=== PATIENT | male | born 1960 | race Hispanic/Latino ===

== ENCOUNTER 2020-05-17 12:41 | Emergency (ER) | payer OTHER, SELFPAY ==
--- NOTE | ~2020-05-17 | XR_ITS ---
EXAMINATION: XR chest 2V DATE: 05/17/2020 14:16 INDICATION: Heart palpitations TECHNIQUE: PA and lateral views of the chest were obtained. COMPARISON: None FINDINGS: Elevation of the left hemidiaphragm. No airspace opacities, pulmonary edema, pleural effusion or pneu mothorax. The cardiomediastinal silhouette is normal. Visualized bones and soft tissues are unremarka ble. IMPRESSION: 1. Elevated left hemidiaphragm. Otherwise no acute cardiopulmonary disease. Reviewed, dictated and finalized at location A.
[2020-05-17 13:03] VITALS: BP 159/96; PULSE 101; RESP 18; TEMP 36.7; O2SAT 99
--- NOTE | 2020-05-17 13:06 | ECG_ITS ---
Measurements Intervals [place] Rate: 90 P: 17 AL: 155 QRS: 31 QRSD: 139 T: -3 QT: 375 QTc: 459 Interpretive Statements SINUS RHYTHM RIGHT BUNDLE BRANCH BLOCK ABNORMAL ECG Electronically Signed On 05-17-2020 14:56:06 CDT by David Naidu D.O.
[2020-05-17 14:47] LABS: Basophils Absolute Auto 0.1 K/mm3 (0.0-0.1); Basophils Percent Auto 0.6 % (0.2-1.2); Eosinophils Absolute Auto 0.1 K/mm3 (0-0.3); Eosinophils Percent Auto 1.1 % (0-4.4); Hematocrit 44.3 % (42.0-52.0); Hemoglobin 15.8 g/dL (14.0-18.0); Immature Granulocyte Absolute 0.04 K/mm3 (0.00-0.031); Immature Granulocyte Percent A 0.4 % (0-0.5); Lymphocytes Absolute Auto 1.45 K/mm3 (0.9-3.2); Lymphocytes Percent Auto 14.4 % (18.3-44.2); Mean Corpuscular HGB Conc 35.7 g/dl (32-36); Mean Corpuscular Hemoglobin 31.8 pg (26-34); Mean Corpuscular Volume 89.1 fl (80-100); Monocytes Absolute Auto 0.9 K/mm3 (0.1-0.6); Monocytes Percent Auto 8.8 % (2.6-8.5); Neutrophils Absolute Auto 7.5 K/mm3 (1.3-6.7); Neutrophils Percent Auto 74.7 % (45.5-73.1); Platelet Count Result 238 k/mm3 (150-375); Red Blood Count 4.97 M/mm3 (4.6-6.20); Red Cell Distribution Width 12.9 % (11.5-14.5); White Blood Count 10.1 K/mm3 (4.5-10.0)
[2020-05-17 14:48] LABS: Prothrombin Time 13.2 Seconds (11.1-14.7)
[2020-05-17 14:49] LABS: Anion Gap 8 mmol/L (8-16); Blood Urea Nitrogen 20 mg/dL (9-20); Calcium 9.7 mg/dL (8.4-10.2); Carbon Dioxide 27 mmol/L (22-30); Chloride 102 mmol/L (98-107); Estimated CRCL calculation 57 ml/min; Estimated Glomerular Filt Rate > 60; Glucose 109 mg/dL (75-110); Sodium 137 mmol/L (137-145)
[2020-05-17 15:01] LABS: Troponin I < 0.012 ng/mL (0.000-0.034)
[2020-05-17 16:45] VITALS: PULSE 66; RESP 16; O2SAT 100
--- NOTE | 2020-05-17 17:01 | ED.ARRPALP ---
HPI - Arrhythmia/Palpitations General Chief Complaint: Arrhythmia/Palpitations Stated Complaint: fast heart rate, resolved Time Seen by Provider: 05/17/20 16:18 Source: patient and family Mode of arrival: ambulatory Limitations: no limitations History of Present Illness HPI narrative: 59-year-old with a history of hypertension, hyperlipidemia here with complaints of palpitations on and off since this morning. Patient states that he went for 5 mile walk came back home and started working in his basement started to feel his heart was racing. He stated he checked his pulse on his apple watch which showed 140. He denies any chest pain or shortness of breath. He presently states that he is feeling fine. Patient denies drinking caffeinated privileges. 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 complaint: rapid heart beat Onset (ago): hour(s) (4) Duration: intermittent and now resolved Severity: moderate Context: occurred during exertion Associated symptoms: denies other symptoms Related Data Home Medications Medication Instructions Recorded Confirmed atorvastatin 05/17/20 cetirizine mg 05/17/20 fluticasone propionate INTRANASAL 05/17/20 lisinopril 05/17/20 sildenafil 05/17/20 Allergies Allergy/AdvReac Type Severity Reaction Status Date / Time No Known Allergies Allergy Unverified 02/13/16 09:01 Review of Systems Review of Systems: All systems reviewed & are unremarkable except as noted in HPI and below Constitutional: Constitutional: Reports as per HPI Eyes: Eyes: Reports as per HPI ENT: Reports system reviewed and no additional complaints, except as documented Cardiovascular: Cardiovascular: Reports no additional cardiovascular complaints Respiratory: Respiratory: Reports no additional respiratory complaints Gastrointestinal: Gastrointestinal: Reports as per HPI Musculoskeletal: Musculoskeletal: Reports no additional musculoskeletal complaints Neurologic: Reports system reviewed and no additional complaints, except as documented PMFSH Social History Social History Gender identity (if verbalized by the patient): Male Exam Narrative: Exam Narrative: GENERAL: Well-appearing, well-nourished, and in no acute distress. HEAD: Normocephalic, atraumatic. EYES: PERRLA and EOMI. ENT: Nares clear, no rhinorrhea or epistaxis. Mucous membranes moist. NECK: Supple. CHEST: Clear to auscultation. No respiratory distress. HEART: Regular rate and rhythm. No murmur heard. Normal peripheral pulses. ABDOMEN: Soft, nontender, nondistended, normal active bowel sounds. EXTREMITIES: Normal range of motion. No edema. SKIN: Warm, dry, no rash. NEURO: No focal deficits. Alert and oriented x3. PSYCH: Normal mood and affect. Course Vital Signs Vital signs: Vital Signs Temperature 36.7 C 05/17/20 13:03 Pulse Rate 101 H 05/17/20 13:03 Respiratory Rate 18 05/17/20 13:03 Blood Pressure 159/96 H 05/17/20 13:03 Pulse Oximetry 99 05/17/20 13:03 Temperature 36.7 C 05/17/20 13:03 Pulse Rate 101 H 05/17/20 13:03 Respiratory Rate 18 05/17/20 13:03 Blood Pressure 159/96 H 05/17/20 13:03 Pulse Oximetry 99 05/17/20 13:03 MDM - Arrhythmia/Palpitations MDM Narrative Medical decision making narrative: With a given history of fast heartbeat will do EKG CBC chemistry and troponin. His EKG which was done here in the ER showed right bundle branch no evidence of A. fib or SVT or PVCs. Lab work is unremarkable. Had a long lengthy discussion with the patient about his lab work. Advised him to see his associate designer or primary doctor at [facility] for possible Holter monitor. Also recommended him not to drink any caffeinated beverages till he sees his doctor. [place] Differential Diagnosis Differential diagnosis: Likely palpitations, sinus tachycardia, artial fibrillation, ventricular prematur
[2020-05-17 17:30] VITALS: BP 155/88; PULSE 67; RESP 16; O2SAT 97
== END 2020-05-17 17:30 | disposition home or self-care (01) ==
PROVIDERS: Emergency Provider Family Medicine
DX: R00.2 Palpitations (principal); I10 Essential (primary) hypertension; E78.5 Hyperlipidemia, unspecified; I45.10 Unspecified right bundle-branch block
CPT/HCPCS: 36415; 71046; 80048; 84484; 85025; 85610; 85730; 93005; 99284

== ENCOUNTER 2023-04-04 08:09 | Emergency (ER) | payer OTHER, SELFPAY ==
[2023-04-04] VITALS (7 sets, daily range): BP systolic 138–156; BP diastolic 69–81; PULSE 60–75; RESP 17–20; TEMP 36.7; O2SAT 94–98
--- NOTE | ~2023-04-04 | CT_ITS ---
EXAMINATION: CT brain wo con DATE: 04/04/2023 10:15 INDICATION: Dizziness for one week TECHNIQUE: Computed tomography (CT) of the head was performed without intravenous contrast. The mA wa s adjusted according to patient size. Iterative reconstruction technique was employed. Exam dose: 52 9.67 mGy-cm total exam DLP. COMPARISON: None FINDINGS: No intracranial mass lesion or hemorrhage or cerebrovascular accident, midline shift or mas s effect is evident. Normal ventricular size. No subdural or epidural hematoma. The orbital contents are unremarkable. The included paranasal sinuses and mastoid air cells appear normal. No fracture or bone destruction of the cranial vault. IMPRESSION: No significant abnormality Reviewed, dictated and finalized at Location A. Reviewed, dictated and finalized at location B. IMPRESSION: No significant abnormality
[2023-04-04] MEDS: MECLIZINE HCL 25 MG TABLET PO (08:54)
--- NOTE | 2023-04-04 09:59 | ED.DIZZY ---
HPI - Dizziness General Chief Complaint: Dizziness Stated Complaint: vertigo Time Seen by Provider: 04/04/23 09:02 Source: patient Mode of arrival: ambulatory Limitations: no limitations History of Present Illness HPI Narrative: Patient is a 62-year-old male who presents ED with report of dizziness. Patient reports having dizziness, described as though the room is spinning, intermittently for the last week and a half. He states he typically only notices the dizziness when he lays down to go to bed at night or in the morning, or when he turns his head left and right. This morning however, patient experiencing more severe episode of dizziness. He states he was hardly able to walk due to the dizziness. He states his equilibrium felt very off balance. Patient reports a history of vertigo with several similar episodes occurring in the past. He has previously been prescribed meclizine. Patient also reports having left ear fullness and occasional tinnitus, denies headache, vision changes, nausea, vomiting, chest pain, difficulty breathing, numbness, focal weakness. Related Data Home Medications Medication Instructions Recorded Confirmed atorvastatin 20 mg tablet 05/17/20 cetirizine 10 mg tablet mg 05/17/20 fluticasone propionate 50 intranasal 05/17/20 mcg/actuation nasal spray,suspension lisinopril 20 mg tablet 05/17/20 sildenafil 100 mg tablet 05/17/20 Allergies Allergy/AdvReac Type Severity Reaction Status Date / Time No Known Allergies Allergy Verified 04/04/23 08:29 Review of Systems Review of Systems: CONSTITUTIONAL: Denies fever, chills, or sweats. EYES: Denies visual changes. ENT: See HPI. CARDIOVASCULAR: Denies chest pain, palpitations, or edema. RESPIRATORY: Denies cough or dyspnea. GASTROINTESTINAL: Denies abdominal pain, nausea, vomiting, or diarrhea. NEUROLOGIC: See HPI. All systems reviewed & are unremarkable except as noted in HPI and below PMFSH Past Medical History Medical History (Updated 04/04/23 @ 12:34 by Amina Padron PA-C) HTN (hypertension) Vertigo Social History Social History Gender identity (if verbalized by the patient): Male Exam Narrative: GENERAL: Well appearing, well-nourished, non-toxic, in no acute distress. HEAD: Normocephalic, atraumatic. EYES: PERRL/EOMI, conjunctivae clear bilaterally. Very mild fatiguable nystagmus when looking to the left. EARS: TMs clear, with good light reflex. No erythema or bulging. No cerumen impaction. No serous OM. THROAT: Pharynx clear, no exudate. MMs moist. NECK: Supple. No adenopathy, no masses. No meningeal signs. RESPIRATORY: Airway patent, respirations nonlabored. Clear to auscultation bilaterally, no rales, rhonchi, wheezing. CARDIOVASCULAR: Regular rate and rhythm without murmurs, rubs, or gallops. Peripheral pulses 2+ and equal bilaterally. MUSCULOSKELETAL: Moves all extremities. Strength/ROM intact without gross deformities. SKIN: Warm, dry, normal color. No rashes. NEURO: A&O X3. Speech clear. Follows commands. CN II-XII intact. Sensation grossly intact. No ataxic movements. Strength 5/5 in upper and lower extremities bilaterally. Gfys-[id number] and hjgpau-[id number] testing intact bilaterally. No pronator drift. Equal valve repairer reclamation strength bilaterally. PSYCHIATRIC: Appropriate mood and affect. Normal interaction. Course Vital Signs Vital signs: Vital Signs Temperature 98.1 F 04/04/23 08:21 Pulse Rate 65 04/04/23 08:21 Respiratory Rate 20 04/04/23 08:21 Blood Pressure 156/77 H 04/04/23 08:21 Pulse Oximetry 97 04/04/23 08:21 Oxygen Delivery Room Air 04/04/23 08:21 Temperature 98.1 F 04/04/23 08:21 Pulse Rate 61 04/04/23 12:45 Respiratory Rate 20 04/04/23 12:45 Blood Pressure 141/72 H 04/04/23 12:45 Pulse Oximetry 98 04/04/23 12:45 Oxygen Delivery Room Air 04/04/23 08:21 MDM - Dizziness MDM Narrative Medical decision making narrative: Patient presented to ED w
[2023-04-04 10:34] LABS: Basophils Absolute Auto 0.1 K/mm3 (0.0-0.1); Basophils Percent Auto 0.6 % (0.2-1.2); Eosinophils Absolute Auto 0.1 K/mm3 (0-0.3); Eosinophils Percent Auto 1.7 % (0-4.4); Hematocrit 45.1 % (42.0-52.0); Hemoglobin 15.5 g/dL (14.0-18.0); Immature Granulocyte Absolute 0.03 K/mm3 (0.00-0.031); Immature Granulocyte Percent A 0.4 % (0-0.5); Lymphocytes Absolute Auto 1.77 K/mm3 (0.9-3.2); Lymphocytes Percent Auto 21.2 % (18.3-44.2); Mean Corpuscular HGB Conc 34.4 g/dl (32-36); Mean Corpuscular Hemoglobin 31.1 pg (26-34); Mean Corpuscular Volume 90.4 fl (80-100); Mean Platelet Volume 9.9 fl (7.4-10.4); Monocytes Absolute Auto 0.6 K/mm3 (0.1-0.6); Monocytes Percent Auto 7.7 % (2.6-8.5); Neutrophils Absolute Auto 5.7 K/mm3 (1.3-6.7); Neutrophils Percent Auto 68.4 % (45.5-73.1); Platelet Count Result 217 k/mm3 (150-375); Red Blood Count 4.99 M/mm3 (4.6-6.20); Red Cell Distribution Width 13.6 % (11.5-14.5); White Blood Count 8.4 K/mm3 (4.5-10.0)
[2023-04-04] MEDS: diazePAM INJ (*CRX) 10 MG/2 ML SYRINGE IV PUSH (10:37)
[2023-04-04] MEDS: SODIUM CHLORIDE 0.9% IV 1,000 ML 999 ML IV CONT (10:37)
[2023-04-04 10:40] LABS: Alanine Aminotransferase 45 U/L (6-50); Albumin Level 4.8 g/dL (3.5-5.1); Alkaline Phosphatase 58 U/L (38-126); Anion Gap 7 mmol/L (8-16); Aspartate Amino Transferase 42 U/L (17-59); Bilirubin,Total 0.9 mg/dL (0.2-1.3); Blood Urea Nitrogen 20 mg/dL (9-20); Calcium 9.8 mg/dL (8.4-10.2); Carbon Dioxide 29 mmol/L (22-30); Chloride 103 mmol/L (98-107); Estimated CRCL calculation 64 ml/min; Estimated Glomerular Filt Rate > 60; Glucose 114 mg/dL (65-110); Potassium 3.8 mmol/L (3.4-5.0); Sodium 139 mmol/L (137-145)
== END 2023-04-04 12:49 | disposition home or self-care (01) ==
PROVIDERS: Emergency Provider Physician Assistant
DX: H81.10 Benign paroxysmal vertigo, unspecified ear (principal); I10 Essential (primary) hypertension
CPT/HCPCS: 36415; 70450; 80053; 85025; 96361; 96374; 99284; A9270; J3360; J7030

== ENCOUNTER 2024-03-20 00:46 | Day surgery (SDC) | payer OTHER, SELFPAY ==
[2024-03-14 09:42] VITALS: BMI 28.5
--- NOTE | 2024-03-14 09:43 | PC.NURSE ---
Report to the Outpatient Waiting Room, entrance under the green pavilion located off [facility], at time _0600_ on date _[id number]_. Planned Procedure Time: _0730_. Time changes happen often and if your time is changed the preop area will call you the afternoon before. - You and your visitor will be asked to self-screen and do not enter if you have any COVID symptoms. - A mask is optional within the hospital at this time. Patients may have clear liquids (water, carbonated beverages, clear teas, apple juice) until 3 hours prior to surgery with a maximum of 20 ounces. - No food from midnight until time of surgery Take the following medications with a SIP of water the morning of surgery: ___Flonase DO NOT STOP ANY OF YOUR OTHER PRESCRIPTION MEDICATIONS PRIOR TO SURGERY ?EXCEPT THE FOLLOWING Medications to discontinue per physician None Date to take last dose Please no make-up, nail english, hairspray, perfume, deodorant, or body powder the day of surgery. No jewelry (including any body piercings) or valuables the day of surgery, leave them at home. Please take a shower or bath the night before, or the morning of, surgery with an antibacterial soap. Wear comfortable, loose fitting clothing. - Jewelry must be removed prior to entering the operating room. Rings and piercings that are not removed may be cut off. - The hospital will not accept responsibility for valuables. - Please leave all valuables, including medications, at home the day of surgery. If you are going home after surgery, a licensed garbage truck driver must drive you home. - NO public transportation without another adult if you receive anesthesia. - We recommend that an adult stay with you for 24 hours following discharge. - We also recommend that you do not drive, make important decision, drink alcoholic beverages, or take any drugs that were not prescribed by your health care provider for at least 24 hours after your discharge time. Follow any additional instructions given to you from your surgeon. If you or anyone in your household have experienced Covid symptoms in the past week, please notify your surgeon or the nurse liaison at the phone number below for possible testing. Telephone instructions given to _Pierre_and asked if any additional questions and then verbalized understanding. Patient advised to call surgeon office or pre surgery nurse liaison [phone] if any additional questions.
[2024-03-20 06:20] VITALS: BP 147/78; PULSE 66; RESP 16; TEMP 37.2; O2SAT 97
[2024-03-20 06:34] LABS: Appearance Urine Clear (Clear); Bilirubin Urine Negative (Negative); Blood Urine Negative (Negative); Color Urine Yellow (Yellow); Glucose Urine UA Negative (Negative); Ketones Urine Negative (Negative); Leukocyte Esterase Ur Negative LEU/UL (Negative); Nitrate Urine Negative (Negative); Protein Urine Negative (Negative); Specific Grav Ur 1.013 (1.001-1.035); Urobilinogen Urine 0.2 mg/dL (<2.0); pH Urine 5.5 (5.0-9.0)
[2024-03-20 07:02] LABS: Add Urine Microscopic? NO
[2024-03-20] MEDS: LACTATED RINGERS 1,000 ML 30 ML IV CONT (07:02)
--- NOTE | 2024-03-20 07:13 | P.PNAN_ITS ---
Anes - Initial Pre Proc Eval Procedure: Operation Date: 03/20/24 07:30 Proposed Procedures p Trans Rectal Ultrasound Fusion Guided Prostate Biopsy - Florencio Apodaca MD Date/Time: 03/20/24 07:13 Surgeon: Florencio Apodaca MD Pre Op Diagnosis: Elev PSA Patient Data Age: 63 Gender: M Height: 1.6 m Weight: 78.4 kg Last Vital Signs Temp 99.0 F 03/20/24 06:20 Pulse 66 03/20/24 06:20 Resp 16 03/20/24 06:20 BP 147/78 H 03/20/24 06:20 Pulse Ox 97 03/20/24 06:20 Allergies Allergy/AdvReac Type Severity Reaction Status Date / Time No Known Allergies Allergy Verified 03/20/24 06:55 Home Medications Medication Instructions Recorded Confirmed Type atorvastatin 20 mg tablet 20 mg PO DAILY 05/17/20 03/20/24 History cetirizine 10 mg tablet 10 mg PO DAILY 05/17/20 03/20/24 History fluticasone propionate 50 1 spray intranasal DAILY 05/17/20 03/20/24 History mcg/actuation nasal spray,suspension lisinopril 20 mg tablet 20 mg PO BID 05/17/20 03/20/24 History sildenafil 100 mg tablet 100 mg PO DAILY PRN Sexual Activity 05/17/20 03/20/24 History meclizine 25 mg tablet 25 mg PO TID PRN dizziness #20 tabs 04/04/23 03/20/24 Rx Laboratory Tests 03/20/24 06:20 Urine Color Yellow (Yellow) Urine Appearance Clear (Clear) Urine pH 5.5 (5.0-9.0) Ur Specific [place] 1.013 (1.001-1.035) Urine Protein Negative mg/dL (Negative) Urine Glucose (UA) Negative mg/dL (Negative) Urine Ketones Negative mg/dL (Negative) Ur Blood (Man) Negative (Negative) Urine Nitrate Negative (Negative) Urine Bilirubin Negative (Negative) Urine Urobilinogen 0.2 mg/dL (<2.0) Leukocyte Esterase Rfl Negative CHER/UL (Negative) Patient hx anesthesia problems: none Family hx anesthesia problems: none Results Review: All pre-operative results and documents have been reviewed as part of the pre- operative evaluation. [facility] Past Medical History Medical History (Updated 04/05/23 @ 00:02 by Natan Kim) HTN (hypertension) Vertigo Social History Social History Smoking status: Never smoker Alcohol intake: current Drinks per week: 4 Living arrangements: with family Gender identity (if verbalized by the patient): Male Spiritual care concerns: No Anes - Eval Final PreProcedure Day of Procedure 03/20/24 07:13 Patient weight: obese Heart: regular rate and rhythm Lungs: clear to auscultation Airway: Mallampati scale class II Neurological: alert and oriented Last oral intake: >/= 8 hours ASA classification: III Emergent: no Anesthetic plan: proceed Anesthesia type and monitoring: general GIVS and standard monitoring Results Review: All pre-operative results and documents have been reviewed as part of the pre- operative evaluation. Informed Consent: The patient's anesthetic plan and its attendant risks and benefits were discussed with the patient/family/POA. Questions were solicited and answers provided to the satisfaction of the patient/family/POA.
--- NOTE | 2024-03-20 07:27 | WPDHPUPDATE1 ---
History and Physical Update Update Date/Time: 03/20/24 07:27 History and Physical has been reviewed, including an updated exam of the patient. There are NO changes in the patient's condition. Risks, benefits, and alternatives have been discussed and questions answered. Patient agrees to proceed with procedure.
--- NOTE | 2024-03-20 07:29 | PM.IMHP ---
H&P: HPI History of Present Illness Date/Time: 03/20/24 07:29 Chief Complaint: elevated psa Narrative: 63 year old male with elevated psa and abnormal MRI. Review of Systems Review of Systems: All systems reviewed & are unremarkable except as noted in HPI and below PMFSH Past Medical History Medical History HTN (hypertension) Vertigo Social History Social History Smoking status: Never smoker Alcohol intake: current Drinks per week: 4 Living arrangements: with family Gender identity (if verbalized by the patient): Male Spiritual care concerns: No Meds Home Medications and Allergies Home Medications Medication Instructions Recorded Confirmed Type atorvastatin 20 mg tablet 20 mg PO DAILY 05/17/20 03/20/24 History cetirizine 10 mg tablet 10 mg PO DAILY 05/17/20 03/20/24 History fluticasone propionate 50 1 spray intranasal DAILY 05/17/20 03/20/24 History mcg/actuation nasal spray,suspension lisinopril 20 mg tablet 20 mg PO BID 05/17/20 03/20/24 History sildenafil 100 mg tablet 100 mg PO DAILY PRN Sexual Activity 05/17/20 03/20/24 History meclizine 25 mg tablet 25 mg PO TID PRN dizziness #20 tabs 04/04/23 03/20/24 Rx Allergies Allergy/AdvReac Type Severity Reaction Status Date / Time No Known Allergies Allergy Verified 03/20/24 06:55 Vital Signs Vital Signs - 24 hr 03/20/24 06:20 Temperature 37.2 C Pulse Rate 66 Respiratory Rate 16 Blood Pressure 147/78 H Pulse Oximetry 97 Exam Const: General: cooperative, comfortable and no acute distress Resp: Effort & Inspection: normal respiratory effort Cardio: Rate: regular rate Rhythm: regular rhythm H&P: Results Labs Labs: Urine 03/20/24 Range/Units 06:20 Urine Color Yellow (Yellow) Urine Appearance Clear (Clear) Urine pH 5.5 (5.0-9.0) Ur Specific [place] 1.013 (1.001-1.035) Urine Protein Negative (Negative) mg/dL Urine Glucose (UA) Negative (Negative) mg/dL Assessment and Plan Assessment and plan (1) Elevated PSA: Code(s): R97.20 - Elevated prostate specific antigen [PSA] Status: Acute Assessment and Plan: Proceed with uronav us and prostate biopsy
--- NOTE | 2024-03-20 07:57 | W.PM.PROC2 ---
Procedure Note - Detailed Date of Procedure 03/20/24 Pre-op Diagnosis Elev PSA Post-op Diagnosis Same Procedure Performed Uronav us and prostate biopsy Surgeon Florencio Apodaca MD Anesthesia MAC Description of Procedure Patient is taken the operative suite correctly identified. He was placed in the lateral decubitus position and an anesthesia was obtained. Transrectal ultrasound was then performed. The MRI image was fused to the ultrasound machine. The region of interest was identified in 3 cores were taken from that location. A standard 12 core biopsy was then performed without any difficulty. Patient tolerated procedure well without any complications and was taken recovery stable condition. He will call for path results in 1 week. This completes dictation. Please send a copy of operative note to the office Estimated Blood Loss 0 Drains No Packing No Pathology Yes Complications No immediate complications Condition Stable Disposition PACU
[2024-03-20 07:59] VITALS: BP 116/55; PULSE 68; RESP 14; O2SAT 95
[2024-03-20 08:30] VITALS: BP 130/67; PULSE 54
== END 2024-03-20 08:52 | disposition home or self-care (01) ==
PROVIDERS: Visit Provider Urology
PROC: (CPT 55700; principal; 2024-03-20 07:30)
DX: R97.20 Elevated prostate specific antigen [PSA] (principal); I10 Essential (primary) hypertension
CPT/HCPCS: 55700; 81003; 88342; G0416; J2003; J2250; J2704; J3010; J7120

== ENCOUNTER 2024-04-23 23:49 | Inpatient (IN) | payer OTHER, SELFPAY ==
--- NOTE | ~2024-04-23 | XR_ITS ---
Clinical Indication: Shortness of breath AP and lateral views of the chest: Comparison: 05/17/2020 Findings: The lungs are clear, without evidence of focal consolidation or pleural effusion. Oh stable elevation left hemidiaphragm noted. Cardiomediastinal silhouette is within normal limits. Bones and soft tissues are unremarkable. Impression: Clear lungs. Stable elevation left hemidiaphragm. Reviewed, dictated and finalized at location M. Impression: Clear lungs. Stable elevation left hemidiaphragm.
--- NOTE | ~2024-04-23 | XR_ITS ---
Portable chest x-ray Comparison: 04/26/2024 Clinical History: Intubated Findings: Endotracheal tube and NG tube are in satisfactory positions. Small left pleural effusion w ith left basilar airspace disease present. Right lung clear. Cardiomediastinal silhouette is stable. Bones and soft tissues are unremarkable. Impression: Small left pleural effusion with left basilar atelectasis versus pneumonia. Correlate clinically. Support tubes, as above. Reviewed, dictated and finalized at location . Impression: Small left pleural effusion with left basilar atelectasis versus pneumonia. Cor relate clinically. Support tubes, as above.
--- NOTE | ~2024-04-23 | XR_ITS ---
XR chest ET placement 04/26/2024 13:23 Indication: Status post intubation. Respiratory distress. Procedure: AP portable chest Comparison: Comparison to multiple prior studies sequentially, with oldest reviewed study dated 05/17. Findings: Endotracheal tube tip 1.4 cm above the sapphire. Bilateral airspace disease. Elevated left di aphragm. No pneumothorax. No significant effusion. Impression: 1: Bilateral airspace disease may represent pneumonia or edema. 2: Endotracheal tube tip 1.4 cm above the sapphire. Recommend retraction. Reviewed, dictated and finalized at location B. Impression: 1: Bilateral airspace disease may represent pneumonia or edema. 2: Endotracheal tube tip 1.4 cm above the sapphire. Recommend retraction.
--- NOTE | ~2024-04-23 | CT_ITS ---
CT of the Abdomen and Pelvis: Indication: Abdominal pain, GI bleeding Technique: 2.5 mm axial scans were obtained through the abdomen and pelvis following intravenous adm inistration of 100 cc of Omnipaque 350. Dose reduction technique was used on this scan by utilizing a utomated exposure control and iterative reconstruction technique. The dose-length product (DLP) was 5 52.21 mGy-cm. Findings: Scans through the lung bases demonstrate mild bibasilar atelectatic change. The liver, spleen, pancreas, gallbladder, adrenals and kidneys are within normal limits. No evidence of aortic aneurysm. No lymphadenopathy. Probable mild wall thickening of the gastric antrum/duodenum with minimal adjacent stranding. No willy l obstruction. No abscess or free air evident. Images through the pelvis were performed. Urinary bladder unremarkable. Prostate gland is enlarged. T here is trace pelvic free fluid versus small lymphocele.. Impression: Wall thickening and mild adjacent inflammatory change at the duodenum/gastric antrum, suspicious for peptic ulcer disease. No evidence of perforation. Enlarged prostate gland. Reviewed, dictated and finalized at location M. Impression: Wall thickening and mild adjacent inflammatory change at the duodenum/gastric a ntrum, suspicious for peptic ulcer disease. No evidence of perforation. Enlarged prostate gland.
--- NOTE | ~2024-04-23 | XR_ITS ---
XR abdomen gastric tube insert INDICATION: Evaluate NG tube position. TECHNIQUE: Limited KUB perform for evaluating NG tube . COMPARISON: No prior studies for comparison. FINDINGS: NG tube tip in the stomach. Visualized bowel gas pattern is unremarkable.An endotracheal t ube tip approximately 2 cm above the sapphire. Shallow inspiration with crowding of the pulmonary vesse ls. IMPRESSION: 1: NG tube tip in the stomach. Reviewed, dictated and finalized at location B.
--- NOTE | ~2024-04-23 | XR_ITS ---
EXAMINATION: XR chest 1V portable DATE: 04/28/2024 09:28 INDICATION: Coarse breath sounds. Pulmonary edema. TECHNIQUE: A single frontal view of the chest was obtained. COMPARISON: Chest single view 04/27/2024, CT abdomen and pelvis 04/24/2024 FINDINGS: The lung volumes are small with relative elevation of left hemidiaphragm. There is a diffus e interstitial pattern in the lungs, consistent with mild pulmonary edema. There is mild atelectasis at left lung base. No pleural effusion or pneumothorax. The heart size is normal. IMPRESSION: 1. Mild pulmonary edema. 2. Persistent mild elevation of left hemidiaphragm with mild atelectasis at left lung base. Reviewed, dictated and finalized at location A. IMPRESSION: 1. Mild pulmonary edema. 2. Persistent mild elevation of left hemidiaphragm with mild atelectasis at lef t lung base.
[2024-04-23 23:49] VITALS: BP 115/60; PULSE 111; RESP 22; O2SAT 98
--- NOTE | 2024-04-23 23:55 | ECG_ITS ---
Test Date: 2024-04-23 23:56:14 Measurements Intervals [place] Rate: 112 P: -11 NC: 104 QRS: 54 QRSD: 122 T: -7 QT: 340 QTc: 465 Interpretive Statements SINUS TACHYCARDIA WITH SHORT NC INTERVAL RIGHT BUNDLE BRANCH BLOCK [120+ ms QRS DURATION, UPRIGHT V1, 40+ ms S IN I/aVL/V4/V5/V6] No previous ECG available for comparison Electronically Signed On 04-24-2024 14:42:13 CDT by Brian Dela Cruz M.D.
[2024-04-24] VITALS (29 sets, daily range): BP systolic 105–160; BP diastolic 39–66; PULSE 63–109; RESP 14–23; TEMP 36.3–38.2; O2SAT 93–100; BMI 31.1
[2024-04-24] MEDS: SODIUM CHLORIDE 0.9% IV 1,000 ML 999 ML IV CONT ×2 (00:10→03:43)
[2024-04-24 00:21] LABS: Basophils Percent Auto 0.1 % (0.2-1.2); Eosinophils Percent Auto 0.1 % (0-4.4); Hematocrit 23.5 % (42.0-52.0); Hemoglobin 8.1 g/dL (14.0-18.0); Immature Granulocyte Absolute 0.81 K/mm3 (0.00-0.031); Lymphocytes Absolute Auto 1.41 K/mm3 (0.9-3.2); Lymphocytes Percent Auto 10.5 % (18.3-44.2); Mean Corpuscular HGB Conc 34.5 g/dl (32-36); Mean Corpuscular Hemoglobin 31.4 pg (26-34); Mean Corpuscular Volume 91.1 fl (80-100); Mean Platelet Volume 10.2 fl (7.4-10.4); Monocytes Absolute Auto 1.3 K/mm3 (0.1-0.6); Neutrophils Absolute Auto 9.8 K/mm3 (1.3-6.7); Neutrophils Percent Auto 73.3 % (45.5-73.1); Platelet Count Result 203 k/mm3 (150-375); Red Blood Count 2.58 M/mm3 (4.6-6.20); Red Cell Distribution Width 13.1 % (11.5-14.5); White Blood Count 13.4 K/mm3 (4.5-10.0)
[2024-04-24 00:32] LABS: Creatine Kinase 52 U/L (55-170); Lactic Acid Reflex 2.6 mmol/L (0.7-2.0); Lipase 129 U/L (23-300); Magnesium 1.6 mg/dL (1.6-2.3)
[2024-04-24 00:52] LABS: Troponin I 0.036 ng/mL (0.000-0.034)
[2024-04-24 00:57] LABS: Alanine Aminotransferase 36 U/L (6-50); Albumin Level 2.6 g/dL (3.5-5.1); Alkaline Phosphatase 50 U/L (38-126); Anion Gap 10 mmol/L (4-12); Aspartate Amino Transferase 30 U/L (17-59); Bilirubin,Total 0.4 mg/dL (0.2-1.3); Blood Urea Nitrogen 34 mg/dL (9-20); Calcium 7.5 mg/dL (8.4-10.2); Carbon Dioxide 22 mmol/L (22-30); Chloride 97 mmol/L (98-107); Estimated CRCL calculation 48 ml/min; Estimated Glomerular Filt Rate 56; Glucose 178 mg/dL (65-110); Potassium 4.2 mmol/L (3.4-5.0); Sodium 129 mmol/L (137-145)
[2024-04-24 01:13] LABS: Procalcitonin 0.3 ng/mL
[2024-04-24 02:54] LABS: Add Urine Microscopic? NO; Appearance Urine Clear (Clear); Bilirubin Urine Negative (Negative); Blood Urine Negative (Negative); Color Urine Yellow (Yellow); Glucose Urine UA Negative (Negative); Ketones Urine Negative (Negative); Leukocyte Esterase Ur Negative LEU/UL (Negative); Nitrate Urine Negative (Negative); Protein Urine Negative (Negative); Specific Grav Ur > 1.045 (1.001-1.035); Urobilinogen Urine 0.2 mg/dL (<2.0); pH Urine 6.5 (5.0-9.0)
--- NOTE | 2024-04-24 03:17 | ECG_ITS ---
Test Date: 2024-04-24 03:23:58 Measurements Intervals [place] Rate: 92 P: 16 MO: 133 QRS: 21 QRSD: 124 T: 9 QT: 359 QTc: 446 Interpretive Statements SINUS RHYTHM RIGHT BUNDLE BRANCH BLOCK [120+ ms QRS DURATION, UPRIGHT V1, 40+ ms S IN I/aVL/V4/V5/V6] Compared to ECG 04/23/2024 23:56:14 NO SIGNIFICANT CHANGES Electronically Signed On 04-24-2024 14:45:15 CDT by Brian Dela Cruz M.D.
[2024-04-24 03:18] LABS: Reflex Lactic Acid Yes or No Add Lactic
--- NOTE | 2024-04-24 03:37 | ED.GENADULT ---
HPI - General Adult General Chief complaint: Weakness Stated complaint: LETHARGY, WEAKNESS, DIARRHEA, COVID+ Time Seen by Provider: 04/24/24 00:02 History of Present Illness HPI narrative: Patient is a 63-year-old gentleman who presents emergency department with chief complaint of diarrhea and weakness. The patient recently had COVID-19 full tested positive today started feeling weak he has been having diarrhea for several days and today noticed that when he went to the bathroom his stool was extremely black. Patient reports no prior history of GI bleeds reports that he has abdominal discomfort. Related Data Home Medications Medication Instructions Recorded Confirmed atorvastatin 20 mg tablet 20 mg PO DAILY 05/17/20 03/20/24 cetirizine 10 mg tablet 10 mg PO DAILY 05/17/20 03/20/24 fluticasone propionate 50 1 spray intranasal DAILY 05/17/20 03/20/24 mcg/actuation nasal spray,suspension lisinopril 20 mg tablet 20 mg PO BID 05/17/20 03/20/24 sildenafil 100 mg tablet 100 mg PO DAILY PRN Sexual Activity 05/17/20 03/20/24 Allergies Allergy/AdvReac Type Severity Reaction Status Date / Time No Known Allergies Allergy Verified 03/20/24 06:55 Review of Systems Review of Systems: A 10 system review of systems was completed on the patient and is negative except for what is stated in the HPI. Nursing and ancillary documentation was reviewed. [facility] Past Medical History Medical History HTN (hypertension) Vertigo Social History Social History Smoking status: Never smoker Alcohol intake: current Drinks per week: 4 Living arrangements: with family Gender identity (if verbalized by the patient): Male Spiritual care concerns: No Exam Narrative: GENERAL: Well-appearing, well-nourished, and in no acute distress. HEAD: Normocephalic, atraumatic. EYES: PERRLA and EOMI. ENT: Nares clear, no rhinorrhea or epistaxis. Mucous membranes moist. NECK: Supple. CHEST: Clear to auscultation. No respiratory distress. HEART: Regular rate and rhythm. No murmur heard. Normal peripheral pulses. ABDOMEN: Soft, mild diffuse tenderness, nondistended, normal active bowel sounds. : Black guaiac-positive stool EXTREMITIES: Normal range of motion. No edema. SKIN: Warm, dry, no rash. NEURO: No focal deficits. Alert and oriented x3. PSYCH: Normal mood and affect. Course Vital Signs Vital signs: Vital Signs Pulse Rate 111 H 04/23/24 23:49 Respiratory Rate 22 H 04/23/24 23:49 Blood Pressure 115/60 04/23/24 23:49 Pulse Oximetry 98 04/23/24 23:49 Oxygen Delivery Room Air 04/23/24 23:49 Pulse Rate 93 04/24/24 03:23 Respiratory Rate 18 04/24/24 03:23 Blood Pressure 111/57 L 04/24/24 03:23 Pulse Oximetry 96 04/24/24 03:23 Oxygen Delivery Room Air 04/23/24 23:49 Medical Decision Making MDM Narrative Medical decision making narrative: Differential diagnosis includes dehydration, electrolyte abnormality, GI bleed, Patient's hemoglobin was 8.1 this is significantly decreased from the patient's previous hemoglobins. Electrolytes showed a BUN of 34 lactic acid was slightly elevated magnesium was 0.036. Urinalysis showed a specific gravity of greater than 1.045 CT scan of the abdomen pelvis showed evidence of a possible ulcer patient was given Protonix in the emergency department started on a Protonix drip patient admitted to the hospital service for serial H&Hs and further care. Vital Signs Vital Signs: Vital Signs Pulse Rate 111 H 04/23/24 23:49 Respiratory Rate 22 H 04/23/24 23:49 Blood Pressure 115/60 04/23/24 23:49 Pulse Oximetry 98 04/23/24 23:49 Oxygen Delivery Room Air 04/23/24 23:49 Pulse Rate 93 04/24/24 03:23 Respiratory Rate 18 04/24/24 03:23 Blood Pressure 111/57 L 04/24/24 03:23 Pulse Oximetry 96 04/24/24
[2024-04-24 03:38] LABS: Lactic Acid 1.3 mmol/L (0.7-2.0)
[2024-04-24] MEDS: MORPHINE SULFATE (*CRX) 4 MG/ML INJ IV PUSH ×2 (03:39→21:18)
[2024-04-24] MEDS: PANTOPRAZOLE SODIUM IV 40 MG VIAL IV PUSH ×2 (03:41→21:18)
[2024-04-24 03:49] LABS: Troponin I 0.186 ng/mL (0.000-0.034)
[2024-04-24 03:59] LABS: Influenza A QL RT-PCR Negative (Negative); Influenza B QL RT-PCR Negative (Negative); RSV RNA, RT-PCR Negative (Negative); SARS-CoV-2 RNA PCR Positive (Negative)
[2024-04-24] MEDS: PANTOPRAZOLE SODIUM IV 80 MG in SODIUM CHLORIDE 0.9% IV 500 ML 50 MG IV CONT (04:18)
--- NOTE | 2024-04-24 04:40 | PC.NURSE ---
This patient, Pierre Dorantes, was admitted to IMU Room 200-01. Patient/family oriented to hospital policies and general routines including ID bracelet, bed and alarms, visiting hours, pain management, procedures, bathroom and other care routines, personal items, smoking policy, room service/diet, and visiting hours. Information on how to activate the Rapid Response Team has been discussed. Patient/Family are encouraged to report perceived risks to care and to ask questions if they do not understand what they are told or what they should do.
--- NOTE | 2024-04-24 05:32 | PM.IMHP ---
H&P: HPI History of Present Illness Date/Time: 04/24/24 05:32 Chief Complaint: Melena Narrative: Patient is a 63-year-old male past with history of hyperlipidemia, essential hypertension, erectile dysfunction, recently diagnosed COVID-19 presents to ED with complaints of dark diarrhea and weakness. Patient was diagnosed COVID-19 1 week ago with only symptoms of cough. He got COVID-19 from his and grandchild. He feels his cough is improving. Over last several days he started having increased diarrhea with melena. He has developed some generalized weakness. He states he has had H pylori in the past last in 2007. He has been using Tylenol and Motrin up to 400 mg daily to deal with the myalgias from COVID. Patient has had EGD and colonoscopy in the past, not recently. In the ED: He has hemoglobin of 8, last hemoglobin was 15 in March [address]23. Ab[address] CT scan is concerning for ulcer likely in the duodenum with inflammatory changes. Patient was given 2 L fluid bolus, started on Protonix drip for suspected GI bleed. He elevated troponin 0.186 with no chest pain. Patient being admitted for EGD and GI consult for GI bleed. Review of Systems Review of Systems: Constitutional: No Fever, No Chills, No Night Sweats, No Fatigue, No Malaise ENT/Mouth: No Hearing Changes, No Ear Pain, No Nasal Congestion, No Sinus Pain, No Hoarseness, No sore throat, No Rhinorrhea, No Swallowing Difficulty Eyes: No Eye Pain, No Redness, No Vision Changes Cardiovascular: No Chest Pain, No Palpitations, No Dyspnea on Exertion, No Orthopnea, No Claudication, No Edema Respiratory: Endorses nonproductive cough., No Wheezing, No Shortness of Breath Gastrointestinal: Endorses melena, abdominal pain Genitourinary: No Dysuria, No Urinary Frequency, No Hematuria, No Urinary Incontinence, No Urgency Musculoskeletal: No Arthralgias, No Myalgias, No Joint Swelling, No Joint Stiffness, No Back Pain Skin: No Skin Lesions, No Pruritis, No Hair Changes Neuro: No Weakness, No Numbness, No Paresthesias, No Loss of Consciousness, No Syncope, No Dizziness, No Headache Psych: No Anxiety/Panic, No Depression, No Insomnia Heme: No Bruising, No Bleeding Lymph: No Adenopathy Endocrine: No Polyuria, No Polydipsia, No Temperature Intolerance [facility] Past Medical History Medical History (Updated 04/24/24 @ 05:36 by Conor Arias DO) Erectile dysfunction HLD (hyperlipidemia) HTN (hypertension) Vertigo Family History Family History (Updated 04/24/24 @ 05:05 by Ela Tsang RN) Father Congestive heart failure Diabetes mellitus Mother Colon cancer Atelectasis of both lungs Social History Social History Smoking status: Never smoker Alcohol intake: current Drinks per week: 4 Substance use: never Do You Feel Safe in your Home?: Yes Lack of Transportation: No Lack of Food: Never True Current Housing: I Have Housing Concerned About Future Housing: No Difficulty Paying Gas/Electric Bills: No Difficulty Paying for Meds: No Currently Unemployed: No Education: Associate Degree Difficulty w/ Childcare or Family Care: No Living arrangements: with family Gender identity (if verbalized by the patient): Male Spiritual care concerns: No Meds Home Medications and Allergies Home Medications Medication Instructions Recorded Confirmed Type atorvastatin 20 mg tablet 20 mg PO DAILY 05/17/20 04/24/24 History cetirizine 10 mg tablet 10 mg PO DAILY 05/17/20 04/24/24 History fluticasone propionate 50 1 spray intranasal DAILY 05/17/20 04/24/24 History mcg/actuation nasal spray,suspension lisinopril 20 mg tablet 20 mg PO BID 05/17/20 04/24/24 History sildenafil 100 mg tablet 100 mg PO DAILY PRN Sexual Activity 05/17/20 04/24/24 History meclizine 25 mg tablet 25 mg PO TID PRN dizziness #20 tabs 04/04/23 04/24/24 Rx Allergies Allergy/AdvReac Type Severit
[2024-04-24] MEDS: SODIUM CHLORIDE 0.9% IV 1,000 ML 125 ML IV CONT (05:44)
[2024-04-24 06:30] LABS: Hematocrit 21.4 % (42.0-52.0); Hemoglobin 7.2 g/dL (14.0-18.0)
[2024-04-24 06:59] LABS: Troponin I 0.172 ng/mL (0.000-0.034)
--- NOTE | 2024-04-24 08:55 | P.CONGI_ITS ---
I, Duke Chao MD, have provided a substantive portion of the care of this patient and discussed the patient with my Nurse Practitioner. I have reviewed any new relevant radiographic and laboratory results including medications. I agree with her documentation as noted below.?I personally performed the medical decision making and much of the history and exam for this encounter. briefly, he was diagnosed with COVID about 1 week ago, here with malaise and progressive generalized weakness, also noted dark stools. Few days ago took ibuprofen, he never had EGD but years ago was treated for H pylori. His last colonoscopy with polyp in 2019. Here with acute blood loss anemia, he is getting blood transfusion now, started on iv protonix (he is not taking at home). CT scan showed possible ulcer in duodenum. Plan is EGD tomorrow after more stable. Assessment and Plan Assessment and plan (1) Acute GI bleeding: Code(s): K92.2 - Gastrointestinal hemorrhage, unspecified Status: Acute (2) Melena: Code(s): K92.1 - Melena Status: Acute (3) Right sided abdominal pain: Code(s): R10.9 - Unspecified abdominal pain Status: Acute (4) Nausea: Code(s): R11.0 - Nausea Status: Acute (5) Family history of colon cancer: Code(s): Z80.0 - Family history of malignant neoplasm of digestive organs Status: Acute (6) Acute blood loss anemia: Code(s): D62 - Acute posthemorrhagic anemia Status: Acute (7) COVID: Code(s): U07.1 - COVID-19 Status: Acute (8) Hyponatremia: Code(s): E87.1 - Hypo-osmolality and hyponatremia Status: Acute Plan 1. Melena/nausea/right sided abdominal pain/abnormal imaging digestive: Patient has never had an EGD. CT showed wall thickening and mild adjacent inflammatory changes at the duodenum / gastric antrum suspicious for peptic ulcer disease but no evidence of perforation. Patient presented with dark stools that started on 04/24/2024. Stools were small, smushy, and foul smelling. Patient had maroon colored stools in the ER on 04/24/2024. prior to admission he was having severe right-sided abdominal pain that radiated into his flank and back this pain has improved but not resolved since admission patient was having diarrhea x1 day prior to admission. Most recent H&H showed Hgb 6.5 and Hct 20. DDX: Peptic ulcer disease VS Upper GI bleed VS Gastritis/Duodenitis VS Ischemic colitis VS Inflammatory bowel disease VS neoplasm * Continue Protonix gtt * Care with NSAIDs, aspirin, and anticoagulants * okay for clear liquid diet today * plan for EGD tomorrow once he is more stable ( with transfusion and electrolyte correction) unless patient starts having signs of active bleeding 2. Acute blood loss anemia: Patient with H&H trending down since admission showing HGB 8-->7.2-->6.5. No signs of active GI bleeding at this time to include hematemesis, hematochezia, or melena. Patient denies any chronic NSAID o r aspirin use but had been using Motrin a few days prior to admission. * Likely related to problem 1 * Primary care team to continue monitoring H&H and transfuse as needed to keep hemoglobin > 7 3. COVID: Patient initially tested positive for COVID 04/19/2024 but still having respiratory symptoms as he is unable to complete a sentence without coughing. WBC's 13 and temp 100.8 * primary care team monitoring/treating * continue supportive care * Isolation precautions in place 4 . Hyponatremia: Sodium 129 on admission. * Recheck BMP ordered and primary care team to correct electro
--- NOTE | 2024-04-24 08:55 | WPDGICN ---
Assessment and Plan Assessment and plan (1) Acute GI bleeding: Code(s): K92.2 - Gastrointestinal hemorrhage, unspecified Status: Acute (2) Melena: Code(s): K92.1 - Melena Status: Acute (3) Right sided abdominal pain: Code(s): R10.9 - Unspecified abdominal pain Status: Acute (4) Nausea: Code(s): R11.0 - Nausea Status: Acute (5) Family history of colon cancer: Code(s): Z80.0 - Family history of malignant neoplasm of digestive organs Status: Acute (6) Acute blood loss anemia: Code(s): D62 - Acute posthemorrhagic anemia Status: Acute (7) COVID: Code(s): U07.1 - COVID-19 Status: Acute (8) Hyponatremia: Code(s): E87.1 - Hypo-osmolality and hyponatremia Status: Acute Plan 1. Melena/nausea/right sided abdominal pain/abnormal imaging digestive: Patient has never had an EGD. CT showed wall thickening and mild adjacent inflammatory changes at the duodenum / gastric antrum suspicious for peptic ulcer disease but no evidence of perforation. Patient presented with dark stools that started on 04/24/2024. Stools were small, smushy, and foul smelling. Patient had maroon colored stools in the ER on 04/24/2024. prior to admission he was having severe right-sided abdominal pain that radiated into his flank and back this pain has improved but not resolved since admission patient was having diarrhea x1 day prior to admission. Most recent H&H showed Hgb 6.5 and Hct 20. DDX: Peptic ulcer disease VS Upper GI bleed VS Gastritis/Duodenitis VS Ischemic colitis VS Inflammatory bowel disease VS neoplasm Continue Protonix gtt Care with NSAIDs, aspirin, and anticoagulants okay for clear liquid diet today plan for EGD tomorrow once he is more stable ( with transfusion and electrolyte correction) unless patient starts having signs of active bleeding 2. Acute blood loss anemia: Patient with H&H trending down since admission showing HGB 8-->7.2-->6.5. No signs of active GI bleeding at this time to include hematemesis, hematochezia, or melena. Patient denies any chronic NSAID or aspirin use but had been using Motrin a few days prior to admission. Likely related to problem 1 Primary care team to continue monitoring H&H and transfuse as needed to keep hemoglobin > 7 3. COVID: Patient initially tested positive for COVID 04/19/2024 but still having respiratory symptoms as he is unable to complete a sentence without coughing. WBC's 13 and temp 100.8 primary care team monitoring/treating continue supportive care Isolation precautions in place 4 . Hyponatremia: Sodium 129 on admission. Recheck BMP ordered and primary care team to correct electrolytes prior to endoscopy 5. Family history of colon cancer: Per patient last colonoscopy performed - at [facility] at which time he states he had polyps removed, endoscopy reports were not available today's visit. Patient's mother diagnosis with colon cancer. Given family history patient is overdue for screening colonoscopy if EGD is unremarkable and H/H does not stabilize, may consider inpatient vs outpatient colonoscopy to further evaluate anemia Thank you very much for allowing me to share in the care of this very nice patient. This report may have been done utilizing a voice recognition system. Attempts have been made to correct errors. However, there may be uncorrected grammatical, spelling, and recognition errors present. GI Consult Note Consult date/time: 04/24/24 08:55 Reason for consult: GI bleed HPI: This is a 63 year old male with a past medical surgical history of HLD, HTN, ED, vertigo, and recent prostate biopsy in March 2024. He presents to the office today for evaluation of dark colored stools. He was recently diagnosed with COVID on 04/19/2024. He was accompanied by his Anna during the visit. He reports that he started having dark
[2024-04-24 10:01] LABS: Hematocrit 20.1 % (42.0-52.0); Hemoglobin 6.5 g/dL (14.0-18.0)
--- NOTE | 2024-04-24 10:49 | PM.IMPN ---
Progress Note: A&P Assessment and Plan (1) Acute GI bleeding: Code(s): K92.2 - Gastrointestinal hemorrhage, unspecified Status: Acute Assessment and Plan: Patient has abdominal pain with melena and diarrhea. Patient has history of H pylori. Patient has also been using Motrin recently but not regularly Hgb normal (15.5) March 2023 but no HH since. Hgb 8.1 on presentation and he had HoTN. CT abd/pelvis concerning for duodenal ulcer with inflammation. Protonix drip started GI consulted Keep NPO BP better with IV fluids. Hgb dropped to 6.5 which could be related to IV fluids and/or continued UGI bleed. Transfuse. He will need EGD today. (2) Acute blood loss anemia: Code(s): D62 - Acute posthemorrhagic anemia Status: Acute Assessment and Plan: Hgb normal (15.5) March 2023 but no HH since. Hgb 8.1 on presentation and was hypotensive in the field [place] related to acute blood loss anemia Hgb dropped to 6.5 with plans for transfusion today. Follow H&H. (3) Hypotension: Code(s): I95.9 - Hypotension, unspecified Status: Acute Assessment and Plan: On EMS arrival to the home, blood pressure was 60/40. EMS infuse 300 mL with improvement of blood pressure. Blood pressure on admission was 115/60. Blood pressures remained stable since admission. Suspect hypotension related to acute blood loss anemia and dehydration Follow. Hold lisinopril (4) Elevated troponin: Code(s): R79.89 - Other specified abnormal findings of blood chemistry Status: Acute Assessment and Plan: Troponin climbed to 0.18. Repeat troponin trending downward. No chest pain EKG showing sinus tachycardia rate 112 with a short WI interval and right bundle branch block. Repeat EKG shows normal sinus rhythm with right bundle branch block. The short WI interval has improved. Suspect elevated troponin related to the hypotension and profound. ACS ruled out (5) COVID: Code(s): U07.1 - COVID-19 Status: Acute Assessment and Plan: Patient tested positive for COVID on 04/16. He is weak but not hypoxic. Chest x-ray showed clear lungs. He has a known elevation left hemidiaphragm CT of the abdomen shows mild bibasilar atelectasis in the bases. Continue to monitor and treat appropriately. Continue supportive care (6) HTN (hypertension): Code(s): I10 - Essential (primary) hypertension Status: Acute Assessment and Plan: Blood pressure stable. Hold lisinopril. Plan DVT prophylaxis: SCDs Code status: Full code Subjective Date/time seen: 04/24/24 10:49 Interval history: 63yo male with HLD and HTN who recently tested positive for COVID (04/16) here for melana. Assuming care. Chart reviewed. Patient tested positive for COVID on 04/16. He has not been feeling well. Developed fevers 2-3 days ago. He has been feeling constipated which when this resolved, he began to have dark red stools. He has been taking ibuprofen once a day but does not take this on a normal basis. No nausea or vomiting. No EGD but had a colonoscopy about 8 years ago with polypectomy. No BM since midnight. Exam Narrative: AF 98.9 121/64 89 18 93% ra Gen - NARD Chest - bibasilar crackles. nml RR CV - RRR S1/S2. Telemetry showing no significant dysrhythmias. Abd - Soft, NT/ND, Positive BS Ext - No pedal edema Psych - Nml mood and affect Skin - Warm and dry Objective Data Vital Signs Vital Signs: Vital Signs - 24 hr 04/23/24 23:49 04/24/24 00:14 04/24/24 01:16 Temperature Pulse Rate 111 H 109 H 92 Respiratory Rate 22 H 14 Blood Pressure 115/60 112/57 L Pulse Oximetry 98 96 Oxygen Delivery Room Air 04/24/24 03:23 04/24/24 04:19 04/24/24 04:40 Temperature 99.2 F Pulse Rate 93 87 93 Respiratory Rate 18 14 23 H Blood Pressure 111/57 L 105/63 139/63 Pulse Oximetry 96 95 94 Oxygen Delivery 04/24/24 04:40 04/24/24 06:0
[2024-04-24] MEDS: ACETAMINOPHEN 325 MG TABLET 650 MG PO (11:06)
[2024-04-24] MEDS: SODIUM CHLORIDE 0.9% IV 250 ML 30 ML IV CONT (11:08)
[2024-04-24] MEDS: TUBING, BLOOD PLUM PUMP TUBING 1 EACH XX ×2 (11:08→13:30)
[2024-04-24 11:18] LABS: Anion Gap 9 mmol/L (4-12); Blood Urea Nitrogen 36 mg/dL (9-20); Calcium 7.2 mg/dL (8.4-10.2); Carbon Dioxide 20 mmol/L (22-30); Chloride 103 mmol/L (98-107); Estimated CRCL calculation 52 ml/min; Estimated Glomerular Filt Rate > 60; Glucose 136 mg/dL (65-110); Potassium 4.6 mmol/L (3.4-5.0); Sodium 132 mmol/L (137-145)
[2024-04-24 14:55] LABS: Hematocrit 26.4 % (42.0-52.0); Hemoglobin 8.9 g/dL (14.0-18.0)
--- NOTE | 2024-04-24 15:13 | PC.NURSE ---
Addendum entered by Italia Mccollum RN 04/24/24 15:20: RN was unaware that 1545 H&H had been drawn when speaking with MD. MD updated that H&H had been drawn early, and while blood was still infusing. New order to obtain another H&H at 1900 and at [place]. Orders placed by RN Original Note: Updated Dr. Bertrand on pt's BP. RN had an order to hold IVF while blood was infusing. Clarification received to continue to hold IVF unless BP starts to drop again, then notify MD for orders.
[2024-04-24 19:20] LABS: Hemoglobin 9.3 g/dL (14.0-18.0)
[2024-04-25] VITALS (26 sets, daily range): BP systolic 125–149; BP diastolic 55–77; PULSE 78–120; RESP 18–33; TEMP 36.4–37.7; O2SAT 92–97
[2024-04-25 00:30] LABS: Hematocrit 26.7 % (42.0-52.0); Hemoglobin 9.4 g/dL (14.0-18.0)
[2024-04-25 04:59] LABS: Hematocrit 26.1 % (42.0-52.0); Mean Corpuscular HGB Conc 34.5 g/dl (32-36); Mean Corpuscular Hemoglobin 31.5 pg (26-34); Mean Corpuscular Volume 91.3 fl (80-100); Mean Platelet Volume 9.7 fl (7.4-10.4); Platelet Count Result 171 k/mm3 (150-375); Red Blood Count 2.86 M/mm3 (4.6-6.20); Red Cell Distribution Width 13.6 % (11.5-14.5); White Blood Count 9.6 K/mm3 (4.5-10.0)
[2024-04-25 05:17] LABS: Anion Gap 7 mmol/L (4-12); Blood Urea Nitrogen 18 mg/dL (9-20); Calcium 7.9 mg/dL (8.4-10.2); Carbon Dioxide 23 mmol/L (22-30); Chloride 101 mmol/L (98-107); Estimated CRCL calculation 57 ml/min; Estimated Glomerular Filt Rate > 60; Glucose 107 mg/dL (65-110); Potassium 4.3 mmol/L (3.4-5.0); Sodium 131 mmol/L (137-145)
[2024-04-25] MEDS: MORPHINE SULFATE (*CRX) 4 MG/ML INJ IV PUSH (06:00)
[2024-04-25] MEDS: PANTOPRAZOLE SODIUM IV 40 MG VIAL IV PUSH (08:10)
--- NOTE | 2024-04-25 08:18 | PC.NURSE ---
To GI Lab per [ ruiz]. Report given to [DEREK Castillo @[id number] ].
[2024-04-25] MEDS: LACTATED RINGERS 1,000 ML 150 ML IV CONT ×2 (08:36→09:34)
--- NOTE | 2024-04-25 08:40 | WPDANESEPPF ---
Anes - Initial Pre Proc Eval Procedure: Operation Date: 04/25/24 09:00 Proposed Procedures p Esophagogastroduodenoscopy - Duke Chao MD Date/Time: 04/25/24 08:40 Surgeon: Víctor Arias DO Pre Op Diagnosis: GI bleed, Recent COVID-19 Patient Data Age: 63 Gender: M Height: 1.6 m Weight: 78.6 kg Last Vital Signs Temp 37.3 C 04/25/24 07:20 Pulse 120 H 04/25/24 08:33 Resp 20 04/25/24 08:33 BP 146/70 H 04/25/24 08:33 Pulse Ox 92 04/25/24 08:33 O2 Del Method Room Air 04/25/24 08:33 Allergies Allergy/AdvReac Type Severity Reaction Status Date / Time No Known Allergies Allergy Verified 04/24/24 04:52 Home Medications Medication Instructions Recorded Confirmed Type atorvastatin 20 mg tablet 20 mg PO DAILY 05/17/20 04/24/24 History cetirizine 10 mg tablet 10 mg PO DAILY 05/17/20 04/24/24 History fluticasone propionate 50 1 spray intranasal DAILY 05/17/20 04/24/24 History mcg/actuation nasal spray,suspension lisinopril 20 mg tablet 20 mg PO BID 05/17/20 04/24/24 History sildenafil 100 mg tablet 100 mg PO DAILY PRN Sexual Activity 05/17/20 04/24/24 History meclizine 25 mg tablet 25 mg PO TID PRN dizziness #20 tabs 04/04/23 04/24/24 Rx Laboratory Tests 04/24/24 04/24/24 04/24/24 01:00 06:22 09:09 WBC RBC Hgb 6.5 L* g/dL (14.0-18.0) Hct 20.1 L* % (42.0-52.0) MCV MCH MCHC RDW Plt Count MPV Sodium 132 L mmol/L (137-145) Potassium 4.6 mmol/L (3.4-5.0) Chloride 103 mmol/L (98-107) Carbon Dioxide 20 L mmol/L (22-30) Anion Gap 9 mmol/L (4-12) BUN 36 H mg/dL (9-20) Creatinine 1.20 mg/dL (0.7-1.3) Estim Creat Clear Calc 52 ml/min Estimated GFR > 60 (59 - ) Glucose 136 H mg/dL (65-110) Calcium 7.2 L mg/dL (8.4-10.2) Magnesium Blood Type O Positive Antibody Screen Negative Crossmatch See Detail 04/24/24 04/24/24 04/25/24 14:31 19:15 00:25 WBC RBC Hgb 8.9 L g/dL 9.3 L g/dL 9.4 L g/dL (14.0-18.0) (14.0-18.0) (14.0-18.0) Hct 26.4 L % 27.0 L % 26.7 L % (42.0-52.0) (42.0-52.0) (42.0-52.0) MCV MCH MCHC RDW Plt Count MPV Sodium Potassium Chloride Carbon Dioxide Anion Gap BUN Creatinine Estim Creat Clear Calc Estimated GFR Glucose Calcium Magnesium Blood Type Antibody Screen Crossmatch 04/25/24 04:13 WBC 9.6 K/mm3 (4.5-10.0) RBC 2.86 L M/mm3 (4.6-6.20) Hgb 9.0 L g/dL (14.0-18.0) Hct 26.1 L % (42.0-52.0) MCV 91.3 fl (80-100) MCH 31.5 pg (26-34) MCHC 34.5 g/dl (32-36) RDW 13.6 % (11.5-14.5) Plt Count 171 k/mm3 (150-375) MPV 9.7 fl (7.4-10.4) Sodium 131 L mmol/L (137-145) Potassium 4.3 mmol/L (3.4-5.0) Chloride 101 mmol/L (98-107) Carbon Dioxide 23 mmol/L (22-30) Anion Gap 7 mmol/L (4-12) BUN 18 D mg/dL (9-20) Creatinine 1.10 mg/dL (0.7-1.3) Estim Creat Clear Calc 57 ml/min Estimated GFR > 60 (59 - ) Glucose 107 mg/dL (65-110) Calcium 7.9 L mg/dL (8.4-10.2) Magnesium 2.0 mg/dL (1.6-2.3) Blood Type Antibody Screen Crossmatch Patient hx anesthesia problems: none Family hx anesthesia problems: none Results Review: All pre-operative results and documents have been reviewed as part of the pre-operative evaluation. [facility] Past Medical History Medical History (Reviewed 04/25/24 @ 08:40 by Wing
[2024-04-25] MEDS: EPINEPHrine INJ 1 MG/10 ML SYRINGE XX (09:14)
--- NOTE | 2024-04-25 09:25 | PC.NURSE ---
GI lab called this RN to update them on the pt. Per GI RN, Dr. Monterroso had scoped the pt and found a large duodenal ulcer and multiple clots. Pt will be moved to ICU for closer monitoring and will be rescoped tomorrow. ICU sandblast or shotblast equipment tender updated with pt's status change and will arrange a room.
[2024-04-25 09:46] LABS: Hematocrit 20.7 % (42.0-52.0)
--- NOTE | 2024-04-25 09:49 | SUR.PHASEII ---
Called critical hematocrit of 20.7 to receiving ICU DEREK Ricketts.
--- NOTE | 2024-04-25 10:16 | SUR.OPER ---
0904 Big bore endoscope was initiated. Patient was also intubated. Dr Peterson at [facility]. 0950 Patient transfered to ICU Bed 1 with two RNs.
[2024-04-25] MEDS: PANTOPRAZOLE SODIUM IV 80 MG in SODIUM CHLORIDE 0.9% IV 500 ML 50 MG IV CONT ×2 (10:25→19:59)
[2024-04-25 11:07] LABS: Mean Platelet Volume 9.3 fl (7.4-10.4); Platelet Count Result 179 k/mm3 (150-375)
--- NOTE | 2024-04-25 11:12 | WPDCNINT ---
Assessment and Plan Assessment and plan (1) Acute GI bleeding: Code(s): K92.2 - Gastrointestinal hemorrhage, unspecified Status: Acute Assessment and Plan: Patient presented with melena along with epigastric pain, stated that he was taking Tylenol and Motrin for S myalgias secondary to COVID -patient was evaluated GI -started on Protonix infusion -04/25: EGD: Moderate amount of clotted blood was seen in the stomach likely coming from duodenum. A large ulcer was visible with nonbleeding vessel. It was difficult to find the real source of bleeding given large amounts of hematin the lumen. Epinephrine was administered the site of the ulcer. -patient was admitted to the ICU for closer monitoring as the could not getting very good view of the lumen secondary to large amounts of hematin. -currently hemodynamically stable, will continue to monitor (2) Acute blood loss anemia: Code(s): D62 - Acute posthemorrhagic anemia Status: Acute Assessment and Plan: Acute anemia likely secondary to GI bleed status post 2 units of packed RBCs on 04/24/2024 -dropped hemoglobin to 7.0 this morning, will transfuse 1 unit of packed RBCs -will continue Protonix infusion -seizure H&H (3) HTN (hypertension): Code(s): I10 - Essential (primary) hypertension Status: Acute Assessment and Plan: Currently blood pressure is stable, will hold all antihypertensive (4) HLD (hyperlipidemia): Code(s): E78.5 - Hyperlipidemia, unspecified Status: Acute Assessment and Plan: On atorvastatin at home, will restart once patient okay to take p.o. (5) COVID: Code(s): U07.1 - COVID-19 Status: Acute Assessment and Plan: Chest x-ray on admission was clear -he was tested positive on 04/16/2024 as well as on admission on 04/24/2024 -patient complains of cough, will start Tessalon Perles and guaifenesin Plan DVT prophylaxis: SCDs, no chemoprophylaxis secondary to acute blood loss anemia Stress ulcer prophylaxis: Protonix infusion Nutrition: NPO for now Code Status: Full code Critical Care Time Spent: 48 minutes Discussed with patient's and and patient and updated them with his condition and plan of care. I answered all questions Due to a high probability of clinically significant, life threatening deterioration, the patient required my highest level of preparedness to intervene emergently and I personally spent this critical care time directly and personally managing the patient. This critical care time included obtaining a history; examining the patient; pulse oximetry; ordering and review of studies; arranging urgent treatment with development of a management plan; evaluation of patient's response to treatment; frequent reassessment; and discussions with other providers. It was exclusive of separately billable procedures and treating other patients and teaching time. Please see Assessment and Plan section and the rest of the note for further information on patient assessment and treatment This dictation may have been done utilizing a voice recognition system. Attempts have been made to correct errors. However, there may be uncorrected grammatical, spelling, and recognitions errors present. 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 Patient did not report any history of previous GI bleeds. He complained of epigastric abdominal pain with radiating to the right flank. He tested positive for COVID on 04/16. Patient states today that he has been taking Tylenol and Motrin deal with his myalgias from COVID-19. In the ER his hemoglobin was 8.1, platelets of 203
[2024-04-25 11:14] LABS: Magnesium 1.7 mg/dL (1.6-2.3)
[2024-04-25 11:15] LABS: INR 1.2; Prothrombin Time 15.3 Seconds (11.1-14.7)
[2024-04-25 11:16] LABS: Partial Thromboplastin Time 30.6 Seconds (22.3-36.8)
[2024-04-25 11:17] LABS: Fibrinogen 436 mg/dl (215-510)
[2024-04-25] MEDS: SODIUM CHLORIDE 0.9% IV 250 ML 30 ML IV CONT (11:27)
[2024-04-25] MEDS: BENZONATATE 100 MG CAPSULE 200 MG PO ×2 (12:05→16:05)
[2024-04-25 12:15] LABS: D Dimer 2.31 ug/mL (<0.48)
[2024-04-25] MEDS: guaiFENesin/CODEINE (*CRX) 200/20 MG 10 ML SYRUP PO ×2 (13:17→22:31)
[2024-04-25 14:46] LABS: Hematocrit 23.1 % (42.0-52.0)
--- NOTE | 2024-04-25 15:11 | PM.IMPN ---
Progress Note: A&P Assessment and Plan (1) Acute GI bleeding: Code(s): K92.2 - Gastrointestinal hemorrhage, unspecified Status: Acute Assessment and Plan: Patient has abdominal pain with melena and diarrhea. Patient has history of H pylori. Patient has also been using Motrin recently but not regularly Hgb normal (15.5) March 2023 but no HH since. Hgb 8.1 on presentation and he had HoTN. CT abd/pelvis concerning for duodenal ulcer with inflammation. Protonix drip started GI consulted 04/25: EGD: Moderate amount of clotted blood was seen in the stomach likely coming from duodenum. A large ulcer was visible with nonbleeding vessel. It was difficult to find the real source of bleeding given large amounts of hematin the lumen. Epinephrine was administered the site of the ulcer. -patient was admitted to the ICU for higher level of care (2) Acute blood loss anemia: Code(s): D62 - Acute posthemorrhagic anemia Status: Acute Assessment and Plan: Follow H&H. (3) Hypotension: Code(s): I95.9 - Hypotension, unspecified Status: Acute Assessment and Plan: resolved BP is 149/70 Hold lisinopril until graham (4) Elevated troponin: Code(s): R79.89 - Other specified abnormal findings of blood chemistry Status: Acute Assessment and Plan: Troponin climbed to 0.18. Repeat troponin trending downward. No chest pain Suspect elevated troponin related to the hypotension and profound. ACS ruled out (5) COVID: Code(s): U07.1 - COVID-19 Status: Acute Assessment and Plan: Patient tested positive for COVID on 04/16. He is weak but not hypoxic. Chest x-ray showed clear lungs. He has a known elevation left hemidiaphragm CT of the abdomen shows mild bibasilar atelectasis in the bases. Continue to monitor and treat appropriately. Continue supportive care (6) HTN (hypertension): Code(s): I10 - Essential (primary) hypertension Status: Acute Assessment and Plan: Blood pressure stable. Hold lisinopril. Plan DVT prophylaxis: SCDs Code status: Full code Subjective Date/time seen: 04/25/24 15:11 Interval history: 63yo male with HLD and HTN who recently tested positive for COVID (04/16) here for melana. Interval history Patient tested positive for COVID on 04/16. He has not been feeling well. Developed fevers 2-3 days ago. He has been feeling constipated which when this resolved, he began to have dark red stools. He has been taking ibuprofen once a day but does not take this on a normal basis. No nausea or vomiting. No EGD but had a colonoscopy about 8 years ago with polypectomy. No BM since midnight. 04/25/2024 Pt had EGD this am GI would like pt to be transferred to ICU for higher level of care for active GI bleed. Review of Systems Review of Systems: Pt is tired with cough Exam Narrative: Generally: middle aged male Chest - few crackles CV - RRR S1/S2. Abd - Soft, NT/ND, Positive BS Ext - No pedal edema Psych - Nml mood and affect Skin - Warm and dry Objective Data Vital Signs Vital Signs: Vital Signs - 24 hr 04/24/24 16:00 04/24/24 16:00 04/24/24 18:07 Temperature 37.3 C Pulse Rate 77 77 Respiratory Rate 18 Blood Pressure 123/58 L Pulse Oximetry 96 Oxygen Delivery Room Air Oxygen Flow Rate 04/24/24 18:00 04/24/24 20:00 04/24/24 20:00 Temperature 37.5 C Pulse Rate 85 77 93 Respiratory Rate 18 22 H Blood Pressure 160/59 H Pulse Oximetry 96 97 Oxygen Delivery Room Air Oxygen Flow Rate 04/24/24 20:50 04/25/24 00:00 04/25/24 00:00 Temperature 37.3 C Pulse Rate 102 H 102 H Respiratory Rate 26 H 26 H Blood Pressure 136/66 146/75 H Pulse Oximetry 94 94 Oxygen Delivery Room Air Oxygen Flow Rate 04/25/24 03:25 04/24/24 20:00 04/24/24 22:00 Temperature 37.1 C Pulse Rate 88 63 74 Respiratory Rate 20 Bl
[2024-04-25 21:17] LABS: Hematocrit 21.5 % (42.0-52.0); Hemoglobin 7.3 g/dL (14.0-18.0)
[2024-04-26] VITALS (48 sets, daily range): BP systolic 86–155; BP diastolic 45–95; PULSE 56–121; RESP 2–32; TEMP 36.1–37.6; O2SAT 93–100
[2024-04-26] MEDS: SODIUM CHLORIDE 0.9% IV 250 ML 30 ML IV CONT ×3 (03:43→21:15)
--- NOTE | 2024-04-26 06:13 | SUR.PHASEII ---
04/25/[address] Monterroso spoke with magnesium mill operator. Awaiting bed placement.
[2024-04-26] MEDS: PANTOPRAZOLE SODIUM IV 80 MG in SODIUM CHLORIDE 0.9% IV 500 ML 50 MG IV CONT ×2 (07:15→23:05)
[2024-04-26 07:24] LABS: Basophils Percent Auto 0.2 % (0.2-1.2); Hemoglobin 7.1 g/dL (14.0-18.0); Immature Granulocyte Absolute 0.69 K/mm3 (0.00-0.031); Immature Granulocyte Percent A 4.1 % (0-0.5); Lymphocytes Percent Auto 8.3 % (18.3-44.2); Mean Corpuscular HGB Conc 35.7 g/dl (32-36); Mean Corpuscular Hemoglobin 32.4 pg (26-34); Mean Corpuscular Volume 90.9 fl (80-100); Mean Platelet Volume 9.8 fl (7.4-10.4); Monocytes Absolute Auto 1.1 K/mm3 (0.1-0.6); Monocytes Percent Auto 6.3 % (2.6-8.5); Neutrophils Absolute Auto 13.7 K/mm3 (1.3-6.7); Neutrophils Percent Auto 81.1 % (45.5-73.1); Nucleated Red Blood Cells Perc 0.4 % (0.0-0.2); Platelet Count Result 165 k/mm3 (150-375); Red Blood Count 2.19 M/mm3 (4.6-6.20); Red Cell Distribution Width 13.7 % (11.5-14.5); White Blood Count 16.9 K/mm3 (4.5-10.0)
[2024-04-26 07:29] LABS: Hematocrit 19.9 % (42.0-52.0)
[2024-04-26 07:36] LABS: Alanine Aminotransferase 62 U/L (6-50); Albumin Level 2.2 g/dL (3.5-5.1); Alkaline Phosphatase 37 U/L (38-126); Anion Gap 6 mmol/L (4-12); Aspartate Amino Transferase 64 U/L (17-59); Bilirubin,Total 0.4 mg/dL (0.2-1.3); Blood Urea Nitrogen 32 mg/dL (9-20); Calcium 7.2 mg/dL (8.4-10.2); Carbon Dioxide 23 mmol/L (22-30); Chloride 103 mmol/L (98-107); Estimated CRCL calculation 48 ml/min; Estimated Glomerular Filt Rate 56; Glucose 164 mg/dL (65-110); Phosphorus 3.6 mg/dL (2.5-4.5); Potassium 4.5 mmol/L (3.4-5.0); Sodium 132 mmol/L (137-145)
[2024-04-26] MEDS: METOCLOPRAMIDE HCL INJ 10 MG/2 ML VIAL IV PUSH (09:48)
--- NOTE | 2024-04-26 09:53 | WPDINTPN ---
Progress Note: A&P Assessment and Plan (1) Acute GI bleeding: Code(s): K92.2 - Gastrointestinal hemorrhage, unspecified Status: Acute Assessment and Plan: Patient presented with melena along with epigastric pain, stated that he was taking Tylenol and Motrin for S myalgias secondary to COVID -patient was evaluated GI -started on Protonix infusion -04/25: EGD: Moderate amount of clotted blood was seen in the stomach likely coming from duodenum. A large ulcer was visible with nonbleeding vessel. It was difficult to find the real source of bleeding given large amounts of hematin the lumen. Epinephrine was administered the site of the ulcer. -continues to have bowel movements with clots -hemoglobin dropped again this morning, -discuss with GI regarding repeat EGD sooner than later. -currently hemodynamically stable, will continue to monitor (2) Acute blood loss anemia: Code(s): D62 - Acute posthemorrhagic anemia Status: Acute Assessment and Plan: Acute anemia likely secondary to GI bleed status post 2 units of packed RBCs on 04/24/2024 -dropped hemoglobin to 7.0 this morning, will transfuse 1 unit of packed RBCs -will continue Protonix infusion -04/26: patient remains anemic this after receiving 1 unit of packed RBCs earlier morning, hemoglobin is at 7.1 this morning will transfuse 1 more unit of packed RBCs (3) HTN (hypertension): Code(s): I10 - Essential (primary) hypertension Status: Acute Assessment and Plan: Currently blood pressure is stable, will hold all antihypertensive (4) HLD (hyperlipidemia): Code(s): E78.5 - Hyperlipidemia, unspecified Status: Acute Assessment and Plan: On atorvastatin at home, will restart once patient okay to take p.o. (5) COVID: Code(s): U07.1 - COVID-19 Status: Acute Assessment and Plan: Chest x-ray on admission was clear -he was tested positive on 04/16/2024 as well as on admission on 04/24/2024 -patient complains of cough, will start Tessalon Perles and guaifenesin -patient states cough has improved significantly, denies any shortness of breath Plan DVT prophylaxis: SCDs, no chemoprophylaxis secondary to acute blood loss anemia Stress ulcer prophylaxis: Protonix infusion Nutrition: NPO for now Code Status: Full code Critical Care Time Spent: 35 minutes Discussed with patient's and and patient and updated them with his condition and plan of care. I answered all questions Due to a high probability of clinically significant, life threatening deterioration, the patient required my highest level of preparedness to intervene emergently and I personally spent this critical care time directly and personally managing the patient. This critical care time included obtaining a history; examining the patient; pulse oximetry; ordering and review of studies; arranging urgent treatment with development of a management plan; evaluation of patient's response to treatment; frequent reassessment; and discussions with other providers. It was exclusive of separately billable procedures and treating other patients and teaching time. Please see Assessment and Plan section and the rest of the note for further information on patient assessment and treatment This dictation may have been done utilizing a voice recognition system. Attempts have been made to correct errors. However, there may be uncorrected grammatical, spelling, and recognitions errors present. Subjective Date/time seen: 04/26/24 09:53 Interval history: Reason for consult: GI bleed, acute blood loss anemia, COVID positive 04/25: EGD: Moderate amount of clotted blood was seen in the stomach likely coming from duodenum. A large ulcer was visible with nonbleeding vessel. It was difficult to find the real source of bleeding given large amounts of him at in the lumen. Epinephrine was administered the site of the ulcer. 04/26/2024: Patient seen and ex
[2024-04-26] MEDS: LACTATED RINGERS 1,000 ML 150 ML IV CONT (10:47)
--- NOTE | 2024-04-26 10:55 | WPDANESEPPF ---
Anes - Initial Pre Proc Eval Procedure: Operation Date: 04/25/24 09:00 Proposed Procedures p Esophagogastroduodenoscopy - Duke Chao MD Operation Date: 04/26/24 16:00 Proposed Procedures p Esophagogastroduodenoscopy - Duke Chao MD Date/Time: 04/26/24 10:55 Surgeon: Víctor Arias DO Pre Op Diagnosis: GI bleed, Recent COVID-19 Patient Data Age: 63 Gender: M Height: 1.6 m Weight: 78.4 kg Last Vital Signs Temp 98.1 F 04/26/24 10:45 Pulse 83 04/26/24 10:45 Resp 24 H 04/26/24 10:45 BP 134/62 04/26/24 10:45 Pulse Ox 94 04/26/24 10:45 O2 Del Method Room Air 04/26/24 10:27 O2 Flow Rate 1 04/25/24 11:26 Allergies Allergy/AdvReac Type Severity Reaction Status Date / Time No Known Allergies Allergy Verified 04/26/24 10:30 Home Medications Medication Instructions Recorded Confirmed Type atorvastatin 20 mg tablet 20 mg PO DAILY 05/17/20 04/24/24 History cetirizine 10 mg tablet 10 mg PO DAILY 05/17/20 04/24/24 History fluticasone propionate 50 1 spray intranasal DAILY 05/17/20 04/24/24 History mcg/actuation nasal spray,suspension lisinopril 20 mg tablet 20 mg PO BID 05/17/20 04/24/24 History sildenafil 100 mg tablet 100 mg PO DAILY PRN Sexual Activity 05/17/20 04/24/24 History meclizine 25 mg tablet 25 mg PO TID PRN dizziness #20 tabs 04/04/23 04/24/24 Rx Laboratory Tests 04/24/24 04/25/24 04/25/24 01:00 10:56 14:30 WBC RBC Hgb 8.0 L g/dL (14.0-18.0) Hct 23.1 L % (42.0-52.0) MCV MCH MCHC RDW Plt Count 179 k/mm3 (150-375) MPV 9.3 fl (7.4-10.4) Immature Gran % (Auto) Neut % (Auto) Lymph % (Auto) [place] % (Auto) Eos % (Auto) Baso % (Auto) Lymph # (Auto) [place] # (Auto) Eos # (Auto) Baso # (Auto) Abs Immat Gran (auto) Absolute Neuts (auto) Absolute Nucleated RBC Nucleated RBC % PT 15.3 H Seconds (11.1-14.7) INR 1.2 APTT 30.6 Seconds (22.3-36.8) Fibrinogen 436 mg/dl (215-510) D-Dimer 2.31 H ug/mL (<0.48) Sodium Potassium Chloride Carbon Dioxide Anion Gap BUN Creatinine Estim Creat Clear Calc Estimated GFR Glucose Calcium Phosphorus Magnesium 1.7 mg/dL (1.6-2.3) Total Bilirubin AST ALT Alkaline Phosphatase Total Protein Albumin Blood Type O Positive Antibody Screen Negative Crossmatch See Detail 04/25/24 04/26/24 21:12 07:19 WBC 16.9 H K/mm3 (4.5-10.0) RBC 2.19 L M/mm3 (4.6-6.20) Hgb 7.3 L g/dL 7.1 L g/dL (14.0-18.0) (14.0-18.0) Hct 21.5 L % 19.9 L* % (42.0-52.0) (42.0-52.0) MCV 90.9 fl (80-100) MCH 32.4 pg (26-34) MCHC 35.7 g/dl (32-36) RDW 13.7 % (11.5-14.5) Plt Count 165 k/mm3 (150-375) MPV 9.8 fl (7.4-10.4) Immature Gran % (Auto) 4.1 H % (0-0.5) Neut % (Auto) 81.1 H % (45.5-73.1) Lymph % (Auto) 8.3 L % (18.3-44.2) [place] % (Auto) 6.3 % (2.6-8.5) Eos % (Auto) 0.0 % (0-4.4) Baso % (Auto) 0.2 % (0.2-1.2) Lymph # (Auto) 1.40 K/mm3 (0.9-3.2) [place] # (Auto) 1.1 H K/mm3 (0.1-0.6) Eos # (Auto) 0.0 K/mm3 (0-0.3) Baso # (Auto) 0.0 K/mm3 (0.0-0.1) Abs Immat Gran (auto) 0.69 H K/mm3 (0.00-0.031) Absolute Neuts (auto) 13.7 H K/mm3 (1.3-6.7) Absolute Nucleated RBC 0.070 H K/mm3 (0.0-0.012) Nucleated RBC % 0.4 H %
--- NOTE | 2024-04-26 11:28 | PCFNICU ---
ICU Rounding Note: Pt current nutrition is NPO. Nutrition recommendation: advance diet as tolerated per MD orders. Last recorded weight is 78.4 kg, up from 79.7 kg on admit. Bowel Motility: +Bm reported 04/26 Labs Reviewed: Glu 164, GFR 56, BUN 32, Na 132, Alb 2.2,Hct 19.9,Hgb 7.1 Meds Noted: Protonix, NS, LR Skin: WNL Additional Notes: Patient remains NPO for EGD today. 04/25 EGD found ulcers. Plans to remain NPO at this time. Following daily in ICU rounds. Monitor diet order, intake, wt, labs. Follow up in 3 days.
[2024-04-26] MEDS: EPINEPHrine INJ 1 MG/10 ML SYRINGE 0.4 MG XX (11:30)
--- NOTE | 2024-04-26 11:38 | WPDANESPN ---
Anes - Prog Note Post-Op Date/Time: 04/26/24 11:38 Cardiovascular status: normal Respiratory status: normal Airway patency: baseline Mental status: baseline Post-Op hydration status: normal Vital Signs: Last Vital Signs Temp 36.7 C 04/26/24 10:45 Pulse 83 04/26/24 10:45 Resp 24 H 04/26/24 10:45 BP 134/62 04/26/24 10:45 Pulse Ox 94 04/26/24 10:45 O2 Del Method Room Air 04/26/24 10:27 O2 Flow Rate 1 04/25/24 11:26 Pain Score (VAS): 0 I/O: Intake & Output 04/25/24 04/26/24 04/26/24 23:59 07:59 15:59 Intake Total 451.7 1100 420.3 Output Total 1150 500 Balance -698.3 600 420.3 Laboratory Tests 04/26/24 07:19 04/26/24 07:19 04/24/24 04/25/24 04/25/24 01:00 10:56 14:30 WBC RBC Hgb 8.0 L Hct 23.1 L MCV MCH MCHC RDW Plt Count MPV Immature Gran % (Auto) Neut % (Auto) Lymph % (Auto) [place] % (Auto) Eos % (Auto) Baso % (Auto) Lymph # (Auto) [place] # (Auto) Eos # (Auto) Baso # (Auto) Abs Immat Gran (auto) Absolute Neuts (auto) Absolute Nucleated RBC Nucleated RBC % Fibrinogen 436 D-Dimer 2.31 H Sodium Potassium Chloride Carbon Dioxide Anion Gap BUN Creatinine Estim Creat Clear Calc Estimated GFR Glucose Calcium Phosphorus Magnesium Total Bilirubin AST ALT Alkaline Phosphatase Total Protein Albumin Blood Type O Positive Antibody Screen Negative Crossmatch See Detail 04/25/24 04/26/24 21:12 07:19 WBC 16.9 H RBC 2.19 L Hgb 7.3 L 7.1 L Hct 21.5 L 19.9 L* MCV 90.9 MCH 32.4 MCHC 35.7 RDW 13.7 Plt Count 165 MPV 9.8 Immature Gran % (Auto) 4.1 H Neut % (Auto) 81.1 H Lymph % (Auto) 8.3 L [place] % (Auto) 6.3 Eos % (Auto) 0.0 Baso % (Auto) 0.2 Lymph # (Auto) 1.40 [place] # (Auto) 1.1 H Eos # (Auto) 0.0 Baso # (Auto) 0.0 Abs Immat Gran (auto) 0.69 H Absolute Neuts (auto) 13.7 H Absolute Nucleated RBC 0.070 H Nucleated RBC % 0.4 H Fibrinogen D-Dimer Sodium 132 L Potassium 4.5 Chloride 103 Carbon Dioxide 23 Anion Gap 6 BUN 32 H D Creatinine 1.30 Estim Creat Clear Calc 48 Estimated GFR 56 L Glucose 164 H Calcium 7.2 L Phosphorus 3.6 Magnesium 2.0 Total Bilirubin 0.4 AST 64 H ALT 62 H Alkaline Phosphatase 37 L Total Protein 5.0 L Albumin 2.2 L Blood Type Antibody Screen Crossmatch Post-procedural complaints: none Patient Feedback: Patient satisfied with anesthetic care.
--- NOTE | 2024-04-26 12:16 | SUR.PREOP ---
1205 Updated ICU nurse and informed that a ventilator will be needed. 12[address] Wilkes spoke with Dr Tesfaye. 1215 Spoke with Anna, the patients . Updated to patient status.
[2024-04-26] MEDS: PROPOFOL IV EMULSION 100 ML 2.35 MG IV CONT (12:30)
[2024-04-26 12:38] LABS: Glucose Point of Care 243 mg/dl (65-105)
[2024-04-26 12:38] LABS: Glucose Point of Care 236 mg/dl (65-105)
[2024-04-26 13:00] LABS: HPYLORIRESULT Negative
[2024-04-26] MEDS: MIDAZOLAM HCL (*CRX) 2 MG/2 ML VIAL (13:03)
[2024-04-26 13:56] LABS: Triglycerides 163 mg/dL (<150)
[2024-04-26 14:03] LABS: Hematocrit 23.9 % (42.0-52.0); Hemoglobin 7.9 g/dL (14.0-18.0)
[2024-04-26] MEDS: MIDAZOLAM HCL (*CRX) 2 MG/2 ML VIAL IV PUSH ×3 (14:44→23:36)
[2024-04-26] MEDS: guaiFENesin/CODEINE (*CRX) 200/20 MG 10 ML SYRUP PO (15:40)
[2024-04-26] MEDS: PROPOFOL IV EMULSION 100 ML 18.82 MG IV CONT (16:50)
[2024-04-26] MEDS: MORPHINE SULFATE (*CRX) 4 MG/ML INJ IV PUSH (16:58)
[2024-04-26 20:18] LABS: Hemoglobin 7.1 g/dL (14.0-18.0); Mean Corpuscular HGB Conc 35.9 g/dl (32-36); Mean Corpuscular Hemoglobin 31.4 pg (26-34); Mean Corpuscular Volume 87.6 fl (80-100); Mean Platelet Volume 9.9 fl (7.4-10.4); Platelet Count Result 161 k/mm3 (150-375); Red Blood Count 2.26 M/mm3 (4.6-6.20); Red Cell Distribution Width 14.5 % (11.5-14.5); White Blood Count 29.8 K/mm3 (4.5-10.0)
[2024-04-26 20:21] LABS: Hematocrit 19.8 % (42.0-52.0)
[2024-04-26] MEDS: MINERAL OIL/WHITE PETROLATUM OINTMENT 1 APPLIC EACH EYE (21:00)
[2024-04-26] MEDS: PROPOFOL IV EMULSION 100 ML 16.46 MG IV CONT (22:26)
[2024-04-27] VITALS (31 sets, daily range): BP systolic 83–131; BP diastolic 50–77; PULSE 52–71; RESP 14–32; TEMP 36.8–37.6; O2SAT 90–99
[2024-04-27] MEDS: PROPOFOL IV EMULSION 100 ML 14.11 MG IV CONT (03:38)
[2024-04-27 04:47] LABS: Basophils Absolute Auto 0.1 K/mm3 (0.0-0.1); Basophils Percent Auto 0.2 % (0.2-1.2); Hematocrit 23.7 % (42.0-52.0); Hemoglobin 8.2 g/dL (14.0-18.0); Immature Granulocyte Absolute 0.82 K/mm3 (0.00-0.031); Immature Granulocyte Percent A 3.4 % (0-0.5); Lymphocytes Absolute Auto 1.09 K/mm3 (0.9-3.2); Lymphocytes Percent Auto 4.5 % (18.3-44.2); Mean Corpuscular HGB Conc 34.6 g/dl (32-36); Mean Corpuscular Hemoglobin 31.3 pg (26-34); Mean Corpuscular Volume 90.5 fl (80-100); Mean Platelet Volume 10.8 fl (7.4-10.4); Monocytes Absolute Auto 1.3 K/mm3 (0.1-0.6); Monocytes Percent Auto 5.3 % (2.6-8.5); Neutrophils Percent Auto 86.6 % (45.5-73.1); Nucleated Red Blood Cells Perc 0.4 % (0.0-0.2); Platelet Count Result 164 k/mm3 (150-375); Red Blood Count 2.62 M/mm3 (4.6-6.20); Red Cell Distribution Width 14.6 % (11.5-14.5); White Blood Count 24.2 K/mm3 (4.5-10.0)
[2024-04-27 04:57] LABS: INR 1.2; Prothrombin Time 15.1 Seconds (11.1-14.7)
[2024-04-27 04:58] LABS: Partial Thromboplastin Time 26.9 Seconds (22.3-36.8)
[2024-04-27 05:02] LABS: Lactic Acid Reflex 1.6 mmol/L (0.7-2.0)
[2024-04-27 05:26] LABS: Alanine Aminotransferase 44 U/L (6-50); Albumin Level 2.2 g/dL (3.5-5.1); Alkaline Phosphatase 41 U/L (38-126); Anion Gap 6 mmol/L (4-12); Aspartate Amino Transferase 47 U/L (17-59); Bilirubin,Total 0.3 mg/dL (0.2-1.3); Blood Urea Nitrogen 34 mg/dL (9-20); Carbon Dioxide 23 mmol/L (22-30); Chloride 104 mmol/L (98-107); Estimated CRCL calculation 45 ml/min; Estimated Glomerular Filt Rate 51; Glucose 127 mg/dL (65-110); Magnesium 2.1 mg/dL (1.6-2.3); Phosphorus 3.9 mg/dL (2.5-4.5); Potassium 4.5 mmol/L (3.4-5.0); Sodium 133 mmol/L (137-145)
[2024-04-27 05:31] LABS: Platelet Estimate Adequate (Adequate); Smudge Cells PRESENT
[2024-04-27 05:32] LABS: Anisocytosis 1+; Schistocytes None Seen
[2024-04-27 07:19] LABS: Alveolar/Arterial O2 Gradient 412.8 mmHg; Base Excess ABG 0.2 mEq/l (+/-2.0); Fractional Inspired Oxygen 100 %; HCO3 ABG 22.4 mEq/l (22.0-26.0); Methemoglobin ABG 0.2 %THb (0-1.5); Oxygen Content ABG 11.9 %vol (16.0-22.0); Oxygen Saturation ABG 99.7 % (95.0-100.0); Oxyhemoglobin 98.9 % THb (90.0-100.0); PCO2 ABG 26.7 mmHg (35.0-45.0); PO2 ABG 273.5 mmHg (80.0-100.0); PO2 FiO2 Ratio Arterial Blood 2.73 %; Reduced Hemoglobin 0.9 %THb (0-5.0)
[2024-04-27 07:20] LABS: Device VENTILATOR; Modified Allen's Test Pass; Site Drawn RIGHT RADIAL; pH ABG 7.541 (7.350-7.450)
[2024-04-27 07:21] LABS: Arterial Blood Gas PEEP 5 cmH2O; Arterial Blood Gas Tidal Volume 400 ml; Arterial Blood Gas Vent Mode CMV; Arterial Blood Gas Ventilator rate 18 /MIN
--- NOTE | 2024-04-27 07:22 | WPDANESPN ---
Anes - Prog Note Post-Op Date/Time: 04/27/24 07:22 Cardiovascular status: normal Respiratory status: normal Airway patency: baseline Mental status: baseline Post-Op hydration status: normal Vital Signs: Last Vital Signs Temp 37.2 C 04/27/24 06:00 Pulse 60 04/27/24 06:00 Resp 20 04/27/24 06:00 BP 104/54 L 04/27/24 06:00 Pulse Ox 99 04/27/24 06:00 O2 Del Method Mechanical Ventilation 04/27/24 05:40 O2 Flow Rate 1 04/25/24 11:26 FiO2 100 04/27/24 05:40 Pain Score (VAS): 0 I/O: Intake & Output 04/26/24 04/26/24 04/27/24 15:59 23:59 07:59 Intake Total 526.5 904.4 95.7 Output Total 850 650 Balance 526.5 54.4 -554.3 Laboratory Tests 04/27/24 04:12 04/27/24 04:12 04/24/24 04/26/24 04/26/24 01:00 07:17 07:19 WBC 16.9 H RBC 2.19 L Hgb 7.1 L Hct 19.9 L* MCV 90.9 MCH 32.4 MCHC 35.7 RDW 13.7 Plt Count 165 MPV 9.8 Immature Gran % (Auto) 4.1 H Neut % (Auto) 81.1 H Lymph % (Auto) 8.3 L [place] % (Auto) 6.3 Eos % (Auto) 0.0 Baso % (Auto) 0.2 Lymph # (Auto) 1.40 [place] # (Auto) 1.1 H Eos # (Auto) 0.0 Baso # (Auto) 0.0 Abs Immat Gran (auto) 0.69 H Absolute Neuts (auto) 13.7 H Absolute Nucleated RBC 0.070 H Nucleated RBC % 0.4 H Smudge Cells Platelet Estimate Anisocytosis Schistocytes PT INR APTT Puncture Site ABG pH ABG pCO2 ABG pO2 ABG PO2/FiO2 Ratio ABG HCO3 ABG O2 Saturation ABG O2 Content ABG Base Excess A-a Gradient Oxyhemoglobin Carboxyhemoglobin Methemoglobin Reduced Hemoglobin Total Hemoglobin O2 Delivery Device O2 Liters/Min Minute Volume Vent Rate Vent Mode FiO2 Tidal Volume PEEP Peak Inspir Pressure Pressure Support Sodium 132 L Potassium 4.5 Chloride 103 Carbon Dioxide 23 Anion Gap 6 BUN 32 H D Creatinine 1.30 Estim Creat Clear Calc 48 Estimated GFR 56 L Glucose 164 H POC Capillary Glucose Lactic Acid Calcium 7.2 L Phosphorus 3.6 Magnesium 2.0 Total Bilirubin 0.4 AST 64 H ALT 62 H Alkaline Phosphatase 37 L Total Protein 5.0 L Albumin 2.2 L Triglycerides 163 H POC H. pylori Urease Blood Type O Positive Antibody Screen Negative Crossmatch See Detail 04/26/24 04/26/24 04/26/24 12:09 12:11 12:59 WBC RBC Hgb Hct MCV MCH MCHC RDW Plt Count MPV Immature Gran % (Auto) Neut % (Auto) Lymph % (Auto) [place] % (Auto) Eos % (Auto) Baso % (Auto) Lymph # (Auto) [place] # (Auto) Eos # (Auto) Baso # (Auto) Abs Immat Gran (auto) Absolute Neuts (auto) Absolute Nucleated RBC Nucleated RBC % Smudge Cells Platelet Estimate Anisocytosis Schistocytes PT INR APTT Puncture Site ABG pH ABG pCO2 ABG pO2 ABG PO2/FiO2 Ratio ABG HCO3 ABG O2 Saturation ABG O2 Content ABG Base Excess A-a Gradient Oxyhemoglobin Carboxyhemoglobin Methemoglobin Reduced Hemoglobin Total Hemoglobin O2 Delivery Device O2 Liters/Min Minute Volume Vent Rate Vent Mode FiO2 Tidal Volume PEEP Peak Inspir Pressure Pressure Support Sodium Potassium Chloride Carbon Dioxide Anion Gap BUN Creatinine Estim Creat Clear Calc Estimated GFR Glucose POC Capillary Glucose 243 H 236 H Lactic Acid Calcium Phosphorus Magnesium Total Bilirubin AST ALT Alkaline Phosphatase Total Protein Albumin Triglycerides POC H. pylori Urease Negative Blood Type Antibody Screen Crossmatch 04/26/24 04/26/24 04/27/24 13:56 20:05 04:12 WBC 29.8 H 24.2 H RBC 2.26 L 2.62 L Hgb 7.9 L 7.1 L 8.2 L Hct 23.9 L 19.8 L* 23.7 L MCV 87.6 90.5 MCH 31.4 31.3 MCHC 35.9 34.6
[2024-04-27] MEDS: dexmedeTOMIDine 400 MCG/100 ML 400 MCG/100 ML BAG IV CONT (08:51)
[2024-04-27] MEDS: MIDAZOLAM HCL (*CRX) 2 MG/2 ML VIAL IV PUSH (08:51)
[2024-04-27] MEDS: MINERAL OIL/WHITE PETROLATUM OINTMENT 1 APPLIC EACH EYE (08:57)
[2024-04-27] MEDS: guaiFENesin/CODEINE (*CRX) 200/20 MG 10 ML SYRUP PO ×2 (09:41→23:32)
--- NOTE | 2024-04-27 09:50 | WPDINTPN ---
Progress Note: A&P Assessment and Plan (1) Acute respiratory failure: Code(s): J96.00 - Acute respiratory failure, unspecified whether with hypoxia or hypercapnia Status: Acute Assessment and Plan: Patient intubated during endoscopy and remains intubated through the night -currently on CMV mode of ventilation, peep of 5, 100% FiO2 -sedated with propofol -have asked the bedside RN to start Precedex and discontinue the propofol -place patient on SBT and evaluate for extubation (2) Acute GI bleeding: Code(s): K92.2 - Gastrointestinal hemorrhage, unspecified Status: Acute Assessment and Plan: Patient presented with melena along with epigastric pain, stated that he was taking Tylenol and Motrin for S myalgias secondary to COVID -appreciate GI evaluation and recommendations -started on Protonix infusion -04/25: EGD: Moderate amount of clotted blood was seen in the stomach likely coming from duodenum. A large ulcer was visible with nonbleeding vessel. It was difficult to find the real source of bleeding given large amounts of hematin the lumen. Epinephrine was administered the site of the ulcer. -04/26: Repeat EGD showed a large size created ulcer ranging from 20 mm to 25 mm in the duodenal bulb with a visible nonbleeding vessel. Epinephrine was administered, the lesion was also cauterized with gold probe. -04/27: hemoglobin dropped last night, received 1 unit of packed RBC, -GI following the patient -currently hemodynamically stable, will continue to monitor seizure blood counts (3) Acute blood loss anemia: Code(s): D62 - Acute posthemorrhagic anemia Status: Acute Assessment and Plan: Acute anemia likely secondary to GI bleed status has received multiple units of packed RBCs -will continue Protonix infusion -Monitor serial blood counts (4) HTN (hypertension): Code(s): I10 - Essential (primary) hypertension Status: Acute Assessment and Plan: Currently blood pressure is stable, will hold all antihypertensive (5) HLD (hyperlipidemia): Code(s): E78.5 - Hyperlipidemia, unspecified Status: Acute Assessment and Plan: On atorvastatin at home, will restart once patient okay to take p.o. (6) COVID: Code(s): U07.1 - COVID-19 Status: Acute Assessment and Plan: Chest x-ray on admission was clear -he was tested positive on 04/16/2024 as well as on admission on 04/24/2024 -patient complains of cough, continue Tessalon Perles and guaifenesin as it is helping the cough Plan DVT prophylaxis: SCDs, no chemoprophylaxis secondary to acute blood loss anemia Stress ulcer prophylaxis: Protonix infusion Nutrition: NPO for now Code Status: Full code Critical Care Time Spent: 37 minutes Discussed with patient's , son and daughter and updated them with patient's condition and plan of care. They are aware that patient is on a spontaneous breathing trial and hopefully will be able to get extubated today. I updated them with patient blood cause and that we will be doing serial CBCs Due to a high probability of clinically significant, life threatening deterioration, the patient required my highest level of preparedness to intervene emergently and I personally spent this critical care time directly and personally managing the patient. This critical care time included obtaining a history; examining the patient; pulse oximetry; ordering and review of studies; arranging urgent treatment with development of a management plan; evaluation of patient's response to treatment; frequent reassessment; and discussions with other providers. It was exclusive of separately billable procedures and treating other patients and teaching time. Please see Assessment and Plan section and the rest of the note for further information on patient assessment and treatment This dictation may have been done utilizing a voice recognition system. Attempts have been made to
[2024-04-27] MEDS: PANTOPRAZOLE SODIUM IV 80 MG in SODIUM CHLORIDE 0.9% IV 500 ML 50 MG IV CONT ×2 (09:59→21:07)
--- NOTE | 2024-04-27 11:06 | PCNFU ---
Nutrition Follow-Up Complete: Inadequate energy intake related to diet order and altered GI function as evidenced by NPO and clear liquid status Goal: Diet advanced PO intake 75% of meal Patient has limited progress due to mechanical ventilation. Will continue current goal. Pt current nutrition is NPO Nutrition recommendation: If patient is not extubated recommend Vital AF 1.2 20 advance to 50 ml/hr. Flush 30 ml q 4 hours. Last recorded weight is 80.2 kg, up from 79.7 kg on admit. Bowel Motility: +BM reported 04/26 Labs Reviewed:Glu 127, BUN 34, GFR 51, Hct 23.7, Hgb 7.0 Meds Noted:Precedex, Versed, Morphine. Skin: WNL Additional Notes: Patient intubated 04/26. Discussions in rounds for possible breathing trial today. If patient is not extubated tube feeding recommendations given. Monitor diet order, intake, wt, labs. Follow up every Tuesday and Tuesday.
[2024-04-27 12:01] LABS: Alveolar/Arterial O2 Gradient 103.8 mmHg; Base Excess ABG -0.1 mEq/l (+/-2.0); Device VENTILATOR; Fractional Inspired Oxygen 30 %; HCO3 ABG 23.4 mEq/l (22.0-26.0); Modified Allen's Test Pass; Oxygen Content ABG 10.5 %vol (16.0-22.0); Oxygen Saturation ABG 95.4 % (95.0-100.0); Oxyhemoglobin 93.7 % THb (90.0-100.0); PCO2 ABG 32.9 mmHg (35.0-45.0); PO2 ABG 71.4 mmHg (80.0-100.0); PO2 FiO2 Ratio Arterial Blood 2.38 %; Site Drawn RIGHT RADIAL; Total Hemoglobin 7.9 g/dL (12.0-18.0)
[2024-04-27 12:02] LABS: Arterial Blood Gas Vent Mode SPONTANEOUS
[2024-04-27 12:03] LABS: Arterial Blood Gas PEEP 5 cmH2O; Arterial Blood Gas Pressure Support 8 cmH2O
[2024-04-27 12:16] LABS: Hematocrit 23.3 % (42.0-52.0); Hemoglobin 7.8 g/dL (14.0-18.0); Mean Corpuscular HGB Conc 33.5 g/dl (32-36); Mean Corpuscular Volume 92.5 fl (80-100); Mean Platelet Volume 10.2 fl (7.4-10.4); Platelet Count Result 152 k/mm3 (150-375); Red Blood Count 2.52 M/mm3 (4.6-6.20); White Blood Count 20.5 K/mm3 (4.5-10.0)
[2024-04-27] MEDS: BENZONATATE 100 MG CAPSULE 200 MG PO ×2 (12:57→15:55)
--- NOTE | 2024-04-27 14:55 | WPDGIPROGNO ---
Progress Note: A&P Assessment and Plan (1) Duodenal ulcer: Code(s): K26.9 - Duodenal ulcer, unspecified as acute or chronic, without hemorrhage or perforation Status: Acute Assessment and Plan: large size duodenal ulcer no more clotted blood treated with epi and Gold probe continue with iv protonix bid ok to start liquid diet now that he is extubated pending biopsies (2) Melena: Code(s): K92.1 - Melena Status: Acute Assessment and Plan: hgb low but stable s/p blood transfusion nonitor (3) Acute blood loss anemia: Code(s): D62 - Acute posthemorrhagic anemia Status: Acute (4) Acute respiratory failure: Code(s): J96.00 - Acute respiratory failure, unspecified whether with hypoxia or hypercapnia Status: Acute Assessment and Plan: extubated (5) COVID: Code(s): U07.1 - COVID-19 Status: Acute Subjective Date/time seen: 04/27/24 14:55 Interval history: repeat EGD yesterday with large size duodenal ulcer with stigmata of recent bleeding, treated with epi and cautery patient was intubated in order to protect airway prior EGD, in recovery noted seizure activity and remained intubated now he is extubated, no more signs of active bleeding Review of Systems Review of Systems: All systems reviewed & are unremarkable except as noted in HPI and below Exam Const: General: no acute distress Other: awake and alert HENMT: Face/Nose/Sinus: Normal nares present Eyes: Sclera: sclerae normal Neck: Neck: supple Resp: Auscultation: no crackles and rhonchi Cardio: Rate: regular rate GI: GI Palp: Yes Soft to palpation and No Tenderness to palpation present (GI) Auscultation: normal bowel sounds Skin: General skin exam: normal color Neuro: Speech: normal speech Motor exam (neuro): 5/5 motor strength present throughout Extrem: General: normal to inspection Psych: Mental Status: mental status grossly normal Objective Data Vital Signs Vital Signs: Vital Signs - 24 hr 04/26/24 16:00 04/26/24 16:50 04/26/24 16:50 Temperature Pulse Rate 64 88 88 Respiratory Rate 31 H 31 H Blood Pressure Pulse Oximetry 100 Oxygen Delivery Mechanical Ventilation Oxygen Flow Rate Fraction of Inspired Oxygen 100 04/26/24 17:52 04/26/24 16:00 04/26/24 16:00 Temperature 98.9 F Pulse Rate 65 61 66 Respiratory Rate 19 18 Blood Pressure 97/60 L Pulse Oximetry 100 Oxygen Delivery Oxygen Flow Rate Fraction of Inspired Oxygen 04/26/24 18:00 04/26/24 18:00 04/26/24 16:00 Temperature 99.7 F H Pulse Rate 65 65 65 Respiratory Rate 18 18 Blood Pressure 100/54 L Pulse Oximetry 100 100 Oxygen Delivery Mechanical Ventilation Oxygen Flow Rate Fraction of Inspired Oxygen 100 04/26/24 20:00 04/26/24 20:00 04/26/24 21:16 Temperature 99.2 F 99.5 F Pulse Rate 64 81 68 Respiratory Rate 18 18 20 Blood Pressure 98/48 L 107/64 Pulse Oximetry 100 100 Oxygen Delivery Oxygen Flow Rate Fraction of Inspired Oxygen 04/26/24 20:00 04/26/24 21:36 04/26/24 22:00 Temperature 99.6 F 99.5 F Pulse Rate 66 64 Respiratory Rate 17 19 Blood Pressure 111/56 L 86/55 L Pulse Oximetry 100 99 Oxygen Delivery Oxygen Flow Rate Fraction of Inspired Oxygen 100 04/26/24 20:30 04/26/24 22:26 04/26/24 22:26 Temperature Pulse Rate 75 62 61 Respiratory Rate 30 H 15 15 Blood Pressure Pulse Oximetry Oxygen Delivery Oxygen Flow Rate Fraction of Inspired Oxygen 04/26/24 22:36 04/26/24 22:48 04/26/24 23:01 Temperature 99.1 F Pulse Rate 62 59 L 56 L Respiratory Rate 16 14 13 Blood Pressure 86/45 L Pulse Oximetry 98 Oxygen Delivery Oxygen Flow Rate Fraction of Inspired Oxygen 04/26/24 23:07 04/26/24 23:12 04/26/24 23:15 Temperature 98.7 F Pulse Rate 58 L 57 L 76 Respiratory Rate 16 29 H Blood Pressure 95/52 L Pulse Oximetry 98 97 O
[2024-04-27] MEDS: ACETAMINOPHEN 325 MG TABLET 650 MG PO (15:54)
--- NOTE | 2024-04-27 18:09 | PM.IMPN ---
Progress Note: A&P Assessment and Plan (1) Acute respiratory failure: Code(s): J96.00 - Acute respiratory failure, unspecified whether with hypoxia or hypercapnia Status: Acute (2) Acute GI bleeding: Code(s): K92.2 - Gastrointestinal hemorrhage, unspecified Status: Acute (3) Acute blood loss anemia: Code(s): D62 - Acute posthemorrhagic anemia Status: Acute (4) HTN (hypertension): Code(s): I10 - Essential (primary) hypertension Status: Acute (5) HLD (hyperlipidemia): Code(s): E78.5 - Hyperlipidemia, unspecified Status: Acute (6) COVID: Code(s): U07.1 - COVID-19 Status: Acute Plan 63yo male with HLD and HTN who recently tested positive for COVID (04/16) here for melana with dark red stool and associated epigastric pain. Been taking ibuprofen once a day due to myalgia from COVID infection. CT abdomen pelvis on admission showed wall thickening and mild adjacent inflammatory change of the duodenum/gastric antrum suspicious for peptic ulcer disease. No evidence for perforation. GI was consulted and On 04/25/2024 patient EGD which showed moderate amount of clotted blood in the stomach likely coming from duodenum. A large also was visible with non bleeding vessel. It was difficult to find a real source of bleeding given large amount of matter in. Epinephrine was administered at the site of the ulcer. Patient was transferred to ICU for monitoring Repeat EGD was performed on 04/26/2024 which showed large size greater also ranging from 20 mm to 25 mm in the duodenal bulb with a visible non bleeding vessel. Epinephrine was administered the lesion was also cauterized with gold probe. Patient was intubated during endoscopy and remained intubated postop and was transferred to ICU for further treatment. Patient is planned on SVT and evaluate for extubation later today. On Protonix drip Acute blood loss anemia from GI bleed requiring multiple units of packed red blood cell during the hospital stay. Hypertension antihypertensives on hold. Hyperlipidemia on atorvastatin COVID infection: Tested positive on 04/16/2024. Supportive treatment DVT prophylaxis SCD Nutrition: NPO Code status full code Subjective Date/time seen: 04/27/24 18:09 Interval history: Chart reviewed. Family at bedside and discussed with them. Plan to be extubated later today if breathing trial goes well.. Review of Systems Review of Systems: ROS unobtainable: Yes unobtainable due to mental status Exam Narrative: General: Intubated on breathing trial awake and follows some commands HEENT:? Pupils equal and reactive, sclerae is clear, ETT in place Neck:? Supple Respiratory:? Coarse breath sounds at bases, no wheezing, adequate air entry Cardiac:? S1-S2, regular rate and rhythm Abdomen:? Soft, nontender, nondistended, normoactive bowel sounds Extremities:? No edema, palpable pedal pulses Neuro:? Patient is intubated, on Precedex drip follows simple commands in all extremities Skin:? Warm and dry Psych:? Unable to assess at this time Objective Data Vital Signs Vital Signs: Vital Signs - 24 hr 04/26/24 20:00 04/26/24 20:00 04/26/24 21:16 Temperature 99.2 F 99.5 F Pulse Rate 64 81 68 Respiratory Rate 18 18 20 Blood Pressure 98/48 L 107/64 Pulse Oximetry 100 100 Oxygen Delivery Oxygen Flow Rate Fraction of Inspired Oxygen 04/26/24 20:00 04/26/24 21:36 04/26/24 22:00 Temperature 99.6 F 99.5 F Pulse Rate 66 64 Respiratory Rate 17 19 Blood Pressure 111/56 L 86/55 L Pulse Oximetry 100 99 Oxygen Delivery Oxygen Flow Rate Fraction of Inspired Oxygen 100 04/26/24 20:30 04/26/24 22:26 04/26/24 22:26 Temperature Pulse Rate 75 62 61 Respiratory Rate 30 H 15 15 Blood Pressure Pulse Oximetry Oxygen Delivery Oxygen Flow Rate Fraction of Inspired Oxygen 04/26/24 22:36 04/26/24 22:48 04/26/24 23:01 Temperatu
[2024-04-27 19:37] LABS: Hematocrit 21.8 % (42.0-52.0); Hemoglobin 7.5 g/dL (14.0-18.0)
[2024-04-28] VITALS (23 sets, daily range): BP systolic 107–146; BP diastolic 53–70; PULSE 62–81; RESP 17–28; TEMP 37.3–37.8; O2SAT 85–100
[2024-04-28 03:44] LABS: Hematocrit 22.3 % (42.0-52.0); Hemoglobin 7.4 g/dL (14.0-18.0)
[2024-04-28] MEDS: PANTOPRAZOLE SODIUM IV 80 MG in SODIUM CHLORIDE 0.9% IV 500 ML 50 MG IV CONT ×2 (06:45→16:30)
[2024-04-28 08:00] LABS: Basophils Percent Auto 0.1 % (0.2-1.2); Eosinophils Absolute Auto 0.1 K/mm3 (0-0.3); Eosinophils Percent Auto 0.5 % (0-4.4); Hemoglobin 7.1 g/dL (14.0-18.0); Immature Granulocyte Absolute 0.84 K/mm3 (0.00-0.031); Immature Granulocyte Percent A 5.6 % (0-0.5); Lymphocytes Absolute Auto 1.14 K/mm3 (0.9-3.2); Lymphocytes Percent Auto 7.6 % (18.3-44.2); Mean Corpuscular HGB Conc 34.6 g/dl (32-36); Mean Corpuscular Volume 89.5 fl (80-100); Mean Platelet Volume 9.6 fl (7.4-10.4); Monocytes Absolute Auto 1.2 K/mm3 (0.1-0.6); Neutrophils Absolute Auto 11.8 K/mm3 (1.3-6.7); Neutrophils Percent Auto 78.2 % (45.5-73.1); Nucleated Red Blood Cells Perc 0.6 % (0.0-0.2); Platelet Count Result 162 k/mm3 (150-375); Red Blood Count 2.29 M/mm3 (4.6-6.20); Red Cell Distribution Width 14.7 % (11.5-14.5); White Blood Count 15.1 K/mm3 (4.5-10.0)
[2024-04-28 08:13] LABS: Alanine Aminotransferase 46 U/L (6-50); Albumin Level 2.3 g/dL (3.5-5.1); Alkaline Phosphatase 44 U/L (38-126); Anion Gap 5 mmol/L (4-12); Aspartate Amino Transferase 42 U/L (17-59); Bilirubin,Total 0.5 mg/dL (0.2-1.3); Blood Urea Nitrogen 19 mg/dL (9-20); Calcium 7.1 mg/dL (8.4-10.2); Carbon Dioxide 26 mmol/L (22-30); Chloride 102 mmol/L (98-107); Estimated CRCL calculation 53 ml/min; Estimated Glomerular Filt Rate > 60; Glucose 102 mg/dL (65-110); Magnesium 2.1 mg/dL (1.6-2.3); Phosphorus 3.9 mg/dL (2.5-4.5); Potassium 3.8 mmol/L (3.4-5.0); Sodium 133 mmol/L (137-145)
[2024-04-28 08:21] LABS: Hematocrit 20.5 % (42.0-52.0)
[2024-04-28 08:29] LABS: Microcytosis 1+ (NORMAL); Platelet Estimate Adequate (Adequate); Schistocytes None Seen
[2024-04-28 08:30] LABS: Anisocytosis 1+
[2024-04-28] MEDS: BENZONATATE 100 MG CAPSULE 200 MG PO ×3 (08:45→16:30)
--- NOTE | 2024-04-28 09:20 | WPDINTPN ---
Progress Note: A&P Assessment and Plan (1) Acute respiratory failure: Code(s): J96.00 - Acute respiratory failure, unspecified whether with hypoxia or hypercapnia Status: Acute Assessment and Plan: 04/26/2024 Patient intubated during endoscopy and remains intubated through the night -04/27/2024: Patient extubated -encouraged incentive spirometry -04/28; chest x-ray with pulmonary edema, elevation of left hemidiaphragm with atelectasis of left lung base. Will diurese with Lasix as patient is going receive a unit of packed RBCs (2) Acute GI bleeding: Code(s): K92.2 - Gastrointestinal hemorrhage, unspecified Status: Acute Assessment and Plan: Patient presented with melena along with epigastric pain, stated that he was taking Tylenol and Motrin for S myalgias secondary to COVID -appreciate GI evaluation and recommendations -started on Protonix infusion -04/25: EGD: Moderate amount of clotted blood was seen in the stomach likely coming from duodenum. A large ulcer was visible with nonbleeding vessel. It was difficult to find the real source of bleeding given large amounts of hematin the lumen. Epinephrine was administered the site of the ulcer. -04/26: Repeat EGD showed a large size created ulcer ranging from 20 mm to 25 mm in the duodenal bulb with a visible nonbleeding vessel. Epinephrine was administered, the lesion was also cauterized with gold probe. -04/27: hemoglobin dropped last night, received 1 unit of packed RBC, -GI following the patient -currently hemodynamically stable, will continue to monitor seizure blood counts 04/28: Patient dropped his hemoglobin again this morning, to 7.1. Will transfuse 1 unit of packed RBCs. Discussed with GI, will continue to monitor. GI will be here shortly to evaluate (3) Acute blood loss anemia: Code(s): D62 - Acute posthemorrhagic anemia Status: Acute Assessment and Plan: Acute anemia likely secondary to GI bleed status has received multiple units of packed RBCs -will continue Protonix infusion -Monitor serial blood counts 04/28: Will transfuse 1 unit of packed RBCs and diurese (4) HTN (hypertension): Code(s): I10 - Essential (primary) hypertension Status: Acute Assessment and Plan: Currently blood pressure is stable, will hold all antihypertensive (5) HLD (hyperlipidemia): Code(s): E78.5 - Hyperlipidemia, unspecified Status: Acute Assessment and Plan: On atorvastatin at home, will restart once patient okay to take p.o. (6) COVID: Code(s): U07.1 - COVID-19 Status: Acute Assessment and Plan: Chest x-ray on admission was clear -he was tested positive on 04/16/2024 as well as on admission on 04/24/2024 -patient complains of cough, continue Tessalon Perles and guaifenesin as it is helping the cough Plan DVT prophylaxis: SCDs, no chemoprophylaxis secondary to acute blood loss anemia Stress ulcer prophylaxis: Protonix infusion Nutrition: Patient was on full liquid diet, will keep him NPO for now Code Status: Full code Critical Care Time Spent: 35 minutes Discussed with patient's , son and daughter and updated them with patient's condition and plan of care. They are aware that patient is on a spontaneous breathing trial and hopefully will be able to get extubated today. I updated them with patient blood cause and that we will be doing serial CBCs Due to a high probability of clinically significant, life threatening deterioration, the patient required my highest level of preparedness to intervene emergently and I personally spent this critical care time directly and personally managing the patient. This critical care time included obtaining a history; examining the patient; pulse oximetry; ordering and review of studies; arranging urgent treatment with development of a management plan; evaluation of patient's response to treatment; frequent reassessment; and discussions wit
[2024-04-28] MEDS: FUROSEMIDE INJ 40 MG/4 ML VIAL 20 MG IV PUSH (10:40)
[2024-04-28] MEDS: SODIUM CHLORIDE 0.9% IV 250 ML 30 ML IV CONT (10:41)
--- NOTE | 2024-04-28 11:43 | PM.IMPN ---
Progress Note: A&P Assessment and Plan (1) Acute respiratory failure: Code(s): J96.00 - Acute respiratory failure, unspecified whether with hypoxia or hypercapnia Status: Acute (2) Acute GI bleeding: Code(s): K92.2 - Gastrointestinal hemorrhage, unspecified Status: Acute (3) Acute blood loss anemia: Code(s): D62 - Acute posthemorrhagic anemia Status: Acute (4) HTN (hypertension): Code(s): I10 - Essential (primary) hypertension Status: Acute (5) HLD (hyperlipidemia): Code(s): E78.5 - Hyperlipidemia, unspecified Status: Acute (6) COVID: Code(s): U07.1 - COVID-19 Status: Acute Plan 63yo male with HLD and HTN who recently tested positive for COVID (04/16) here for melana with dark red stool and associated epigastric pain. Been taking ibuprofen once a day due to myalgia from COVID infection. CT abdomen pelvis on admission showed wall thickening and mild adjacent inflammatory change of the duodenum/gastric antrum suspicious for peptic ulcer disease. No evidence for perforation. GI was consulted and On 04/25/2024 patient EGD which showed moderate amount of clotted blood in the stomach likely coming from duodenum. A large also was visible with non bleeding vessel. It was difficult to find a real source of bleeding given large amount of matter in. Epinephrine was administered at the site of the ulcer. Patient was transferred to ICU for monitoring Repeat EGD was performed on 04/26/2024 which showed large size greater also ranging from 20 mm to 25 mm in the duodenal bulb with a visible non bleeding vessel. Epinephrine was administered the lesion was also cauterized with gold probe. Patient was intubated during endoscopy and remained intubated postop and was transferred to ICU for further treatment. patient extubated on 04/27/2024 and swithed to oxygen supp via [place]. cxr 04/28/24 with mild pulmonary edema and started on diuresis intermittently. On Protonix drip Acute blood loss anemia from GI bleed requiring multiple units of packed red blood cell during the hospital stay. h and h downtrending. transfuse prn Hypertension antihypertensives on hold. Hyperlipidemia on atorvastatin COVID infection: Tested positive on 04/16/2024. Supportive treatment DVT prophylaxis SCD Nutrition: NPO Code status full code Subjective Date/time seen: 04/28/24 11:43 Interval history: extuatd yesterday. on oxygen via [place]. reprots intermittnet oucgh, congestion. no nausea, vomitign, abdominal pain. no bm . labs reviewed. getting one unit of blood. cxr with mild pulmonary edema Review of Systems Review of Systems: All systems reviewed & are unremarkable except as noted in HPI and below Exam Narrative: General: Pleasant gentleman in no acute distress HEENT:? Pupils equal and reactive, sclerae is clear, Neck:? Supple Respiratory:? Coarse breath sounds at bases, no wheezing, adequate air entry Cardiac:? S1-S2, regular rate and rhythm Abdomen:? Soft, mild tenderness in the epigastric region, nondistended, normoactive bowel sounds Extremities:? No edema, palpable pedal pulses Neuro:? Patient is awake, alert, oriented, nonfocal, answers to questions appropriately and follows simple commands in all extremities Skin:? Warm and dry Psych:? Normal mentation and affect Objective Data Vital Signs Vital Signs: Vital Signs - 24 hr 04/27/24 12:00 04/27/24 12:05 04/27/24 12:38 Temperature 98.5 F Pulse Rate 56 L 58 L 58 L Respiratory Rate 19 15 Blood Pressure 114/71 Pulse Oximetry 94 93 Oxygen Delivery Oxygen Flow Rate Fraction of Inspired Oxygen 04/27/24 12:00 04/27/24 14:00 04/27/24 14:00 Temperature 99 F Pulse Rate 61 58 L 58 L Respiratory Rate 19 Blood Pressure 131/53 L Pulse Oximetry 91 Oxygen Delivery Oxygen Flow Rate Fraction of Inspired Oxygen 04/27/24 12:00 04/27/24 12:00 04/27/24 12:15 Temperature Pulse Rate 61
[2024-04-28 13:28] LABS: Hematocrit 25.8 % (42.0-52.0); Hemoglobin 9.1 g/dL (14.0-18.0); Mean Corpuscular HGB Conc 35.3 g/dl (32-36); Mean Corpuscular Volume 87.8 fl (80-100); Mean Platelet Volume 9.9 fl (7.4-10.4); Platelet Count Result 188 k/mm3 (150-375); Red Blood Count 2.94 M/mm3 (4.6-6.20); Red Cell Distribution Width 14.5 % (11.5-14.5); White Blood Count 15.3 K/mm3 (4.5-10.0)
--- NOTE | 2024-04-28 13:41 | WPDGIPROGNO ---
Progress Note: A&P Assessment and Plan (1) Duodenal ulcer: Code(s): K26.9 - Duodenal ulcer, unspecified as acute or chronic, without hemorrhage or perforation Status: Acute Assessment and Plan: large size duodenal ulcer no more clotted blood during 2nd EGD treated with epi and Gold probe continue with iv protonix bid hgb responded to more blood transfusion, up to 9 now no more melena and normalization of BUN expect for h/h to slowly trickle given large size duodenal ulcer but no need of repeat of EGD unless obvious drop or more melena (2) Melena: Code(s): K92.1 - Melena Status: Acute Assessment and Plan: monitor for more signs of bleeding pending biopsies protonix (3) Acute blood loss anemia: Code(s): D62 - Acute posthemorrhagic anemia Status: Acute Assessment and Plan: s/p blood transfusion (4) Acute respiratory failure: Code(s): J96.00 - Acute respiratory failure, unspecified whether with hypoxia or hypercapnia Status: Acute Assessment and Plan: extubated, better (5) COVID: Code(s): U07.1 - COVID-19 Status: Acute Subjective Date/time seen: 04/28/24 13:41 Interval history: no more clear signs of bleeding, last BM about 2 days ago extubated and slowly feeling better hgb slowly was trending down to 7.1 but normal BP and HR Review of Systems Review of Systems: All systems reviewed & are unremarkable except as noted in HPI and below Exam Const: General: no acute distress Other: awake and alert HENMT: Face/Nose/Sinus: Normal nares present Eyes: Sclera: sclerae normal Neck: Neck: supple Resp: Auscultation: no crackles and rhonchi Cardio: Rate: regular rate GI: GI Palp: Yes Soft to palpation and No Tenderness to palpation present (GI) Auscultation: normal bowel sounds Skin: General skin exam: no rashes or lesions noted Neuro: Speech: normal speech Motor exam (neuro): 5/5 motor strength present throughout Extrem: General: normal to inspection Psych: Mental Status: mental status grossly normal Objective Data Vital Signs Vital Signs: Vital Signs - 24 hr 04/27/24 14:00 04/27/24 14:00 04/27/24 16:00 Temperature 99 F Pulse Rate 58 L 58 L 68 Respiratory Rate 19 Blood Pressure 131/53 L Pulse Oximetry 91 Oxygen Delivery Oxygen Flow Rate Fraction of Inspired Oxygen 04/27/24 16:00 04/27/24 16:00 04/27/24 18:00 Temperature 99.4 F Pulse Rate 68 68 65 Respiratory Rate 18 18 Blood Pressure 130/77 Pulse Oximetry 92 92 Oxygen Delivery Nasal Cannula Oxygen Flow Rate 2 Fraction of Inspired Oxygen 04/27/24 18:00 04/27/24 20:00 04/27/24 20:00 Temperature 99.3 F 99.2 F Pulse Rate 65 71 Respiratory Rate 20 23 H Blood Pressure 113/60 115/62 Pulse Oximetry 90 93 93 Oxygen Delivery Nasal Cannula Oxygen Flow Rate 2 Fraction of Inspired Oxygen 04/27/24 22:00 04/27/24 20:00 04/27/24 22:00 Temperature 99.7 F H Pulse Rate 71 71 71 Respiratory Rate 21 H Blood Pressure 114/65 Pulse Oximetry 91 Oxygen Delivery Oxygen Flow Rate Fraction of Inspired Oxygen 04/28/24 00:00 04/28/24 00:00 04/28/24 00:00 Temperature 99.5 F Pulse Rate 70 63 Respiratory Rate 17 Blood Pressure 107/58 L Pulse Oximetry 95 97 Oxygen Delivery Nasal Cannula Oxygen Flow Rate 2 Fraction of Inspired Oxygen 04/28/24 02:00 04/28/24 02:00 04/28/24 04:00 Temperature 99.1 F Pulse Rate 66 66 Respiratory Rate 21 H Blood Pressure 113/54 L Pulse Oximetry 100 95 Oxygen Delivery Nasal Cannula Oxygen Flow Rate 2 Fraction of Inspired Oxygen 04/28/24 04:00 04/28/24 04:00 04/27/24 21:45 Temperature 99.5 F Pulse Rate 72 73 Respiratory Rate 28 H Blood Pressure 123/58 L Pulse Oximetry 94 92 Oxygen Delivery Nasal Cannula Oxygen Flow Rate 2 Fraction of Inspired Oxygen 04/28/24 06:00 04/28/24 06:00 04/28/24 0
[2024-04-28 20:59] LABS: Hematocrit 26.7 % (42.0-52.0); Hemoglobin 9.2 g/dL (14.0-18.0); Immature Platelet Fraction Pct 8.1 % (0.9-11.2); Mean Corpuscular HGB Conc 34.5 g/dl (32-36); Mean Corpuscular Hemoglobin 30.5 pg (26-34); Mean Corpuscular Volume 88.4 fl (80-100); Mean Platelet Volume 10.3 fl (7.4-10.4); Platelet Count Result 155 k/mm3 (150-375); Red Blood Count 3.02 M/mm3 (4.6-6.20); Red Cell Distribution Width 14.7 % (11.5-14.5)
[2024-04-28] MEDS: guaiFENesin/CODEINE (*CRX) 200/20 MG 10 ML SYRUP PO (21:59)
[2024-04-29] VITALS (18 sets, daily range): BP systolic 121–154; BP diastolic 61–78; PULSE 56–89; RESP 16–22; TEMP 36.2–37.7; O2SAT 92–98
[2024-04-29] MEDS: PANTOPRAZOLE SODIUM IV 80 MG in SODIUM CHLORIDE 0.9% IV 500 ML 50 MG IV CONT (02:03)
[2024-04-29 04:15] LABS: Basophils Percent Auto 0.2 % (0.2-1.2); Eosinophils Absolute Auto 0.1 K/mm3 (0-0.3); Hematocrit 23.8 % (42.0-52.0); Hemoglobin 8.3 g/dL (14.0-18.0); Immature Granulocyte Absolute 1.02 K/mm3 (0.00-0.031); Immature Granulocyte Percent A 8.2 % (0-0.5); Lymphocytes Absolute Auto 0.96 K/mm3 (0.9-3.2); Lymphocytes Percent Auto 7.7 % (18.3-44.2); Mean Corpuscular HGB Conc 34.9 g/dl (32-36); Mean Corpuscular Hemoglobin 30.9 pg (26-34); Mean Corpuscular Volume 88.5 fl (80-100); Mean Platelet Volume 9.8 fl (7.4-10.4); Monocytes Absolute Auto 1.3 K/mm3 (0.1-0.6); Neutrophils Absolute Auto 9.1 K/mm3 (1.3-6.7); Neutrophils Percent Auto 72.9 % (45.5-73.1); Nucleated Red Blood Cells Perc 0.6 % (0.0-0.2); Platelet Count Result 181 k/mm3 (150-375); Red Blood Count 2.69 M/mm3 (4.6-6.20); Red Cell Distribution Width 14.7 % (11.5-14.5); White Blood Count 12.5 K/mm3 (4.5-10.0)
[2024-04-29 04:26] LABS: INR 1.1; Prothrombin Time 14.6 Seconds (11.1-14.7)
[2024-04-29 04:27] LABS: Partial Thromboplastin Time 32.9 Seconds (22.3-36.8)
[2024-04-29 04:34] LABS: Alanine Aminotransferase 51 U/L (6-50); Albumin Level 2.6 g/dL (3.5-5.1); Alkaline Phosphatase 54 U/L (38-126); Anion Gap 6 mmol/L (4-12); Aspartate Amino Transferase 44 U/L (17-59); Bilirubin,Total 0.6 mg/dL (0.2-1.3); Blood Urea Nitrogen 14 mg/dL (9-20); Calcium 7.4 mg/dL (8.4-10.2); Carbon Dioxide 29 mmol/L (22-30); Chloride 100 mmol/L (98-107); Estimated CRCL calculation 58 ml/min; Estimated Glomerular Filt Rate > 60; Glucose 120 mg/dL (65-110); Magnesium 2.1 mg/dL (1.6-2.3); Phosphorus 4.2 mg/dL (2.5-4.5); Potassium 3.5 mmol/L (3.4-5.0); Sodium 135 mmol/L (137-145)
[2024-04-29 04:39] LABS: Anisocytosis 1+; Platelet Estimate Adequate (Adequate)
[2024-04-29 04:45] LABS: Microcytosis 1+ (NORMAL); Schistocytes None Seen
--- NOTE | 2024-04-29 08:05 | WPDINTPN ---
Progress Note: A&P Assessment and Plan (1) Acute respiratory failure: Code(s): J96.00 - Acute respiratory failure, unspecified whether with hypoxia or hypercapnia Status: Acute Assessment and Plan: 04/26/2024 Patient intubated during endoscopy and remains intubated through the night -04/27/2024: Patient extubated -encouraged incentive spirometry -04/28; chest x-ray with pulmonary edema, elevation of left hemidiaphragm with atelectasis of left lung base. Will diurese with Lasix as patient is going receive a unit of packed RBCs -04/28/2024: Received Lasix with adequate urine (2) Acute GI bleeding: Code(s): K92.2 - Gastrointestinal hemorrhage, unspecified Status: Acute Assessment and Plan: Patient presented with melena along with epigastric pain, stated that he was taking Tylenol and Motrin for S myalgias secondary to COVID -appreciate GI evaluation and recommendations -started on Protonix infusion -04/25: EGD: Moderate amount of clotted blood was seen in the stomach likely coming from duodenum. A large ulcer was visible with nonbleeding vessel. It was difficult to find the real source of bleeding given large amounts of hematin the lumen. Epinephrine was administered the site of the ulcer. -04/26: Repeat EGD showed a large size created ulcer ranging from 20 mm to 25 mm in the duodenal bulb with a visible nonbleeding vessel. Epinephrine was administered, the lesion was also cauterized with gold probe. -04/27: hemoglobin dropped last night, received 1 unit of packed RBC, -GI following the patient -currently hemodynamically stable, will continue to monitor seizure blood counts 04/28: Patient dropped his hemoglobin again this morning, to 7.1. Will transfuse 1 unit of packed RBCs. Discussed with GI, will continue to monitor. GI will be here shortly to evaluate -04/29: Hemoglobin remained stable, possibly equilibrating. Hemodynamically stable, continue to monitor (3) Acute blood loss anemia: Code(s): D62 - Acute posthemorrhagic anemia Status: Acute Assessment and Plan: Acute anemia likely secondary to GI bleed status has received multiple units of packed RBCs -will continue Protonix infusion -Monitor serial blood counts 04/28: Status post 1 unit of packed RBCs (4) HTN (hypertension): Code(s): I10 - Essential (primary) hypertension Status: Acute Assessment and Plan: Currently blood pressure is stable, will hold all antihypertensive -will order hydralazine p.r.n. for SBP > 150 mmHg (5) HLD (hyperlipidemia): Code(s): E78.5 - Hyperlipidemia, unspecified Status: Acute Assessment and Plan: On atorvastatin at home, will restart once patient okay to take p.o. (6) COVID: Code(s): U07.1 - COVID-19 Status: Acute Assessment and Plan: Chest x-ray on admission was clear -he was tested positive on 04/16/2024 as well as on admission on 04/24/2024 -cough much improved with Tessalon Perles and guaifenesin Plan DVT prophylaxis: SCDs, no chemoprophylaxis secondary to acute blood loss anemia Stress ulcer prophylaxis: Protonix infusion Nutrition: Full liquid diet Code Status: Full code Critical Care Time Spent: 32 minutes May transfer out of the ICU if okay with GI and hospitalist Discussed with patient's and patient himself and updated them with his condition and plan of care. Due to a high probability of clinically significant, life threatening deterioration, the patient required my highest level of preparedness to intervene emergently and I personally spent this critical care time directly and personally managing the patient. This critical care time included obtaining a history; examining the patient; pulse oximetry; ordering and review of studies; arranging urgent treatment with development of a management plan; evaluation of patient's response to treatment; frequent reassessment; and discussions with other providers. It wa
[2024-04-29] MEDS: BENZONATATE 100 MG CAPSULE 200 MG PO ×3 (08:14→16:52)
[2024-04-29] MEDS: hydrALAZINE HCL 20 MG/ML VIAL 10 MG IV PUSH (08:17)
--- NOTE | 2024-04-29 09:26 | WPDGIPROGNO ---
Progress Note: A&P Assessment and Plan (1) Duodenal ulcer: Code(s): K26.9 - Duodenal ulcer, unspecified as acute or chronic, without hemorrhage or perforation Status: Acute Assessment and Plan: large size duodenal ulcer no more clotted blood during 2nd EGD treated with epi and Gold probe continue with iv protonix bid hgb responded to more blood transfusion, now ~ 8 no more melena and normalization of BUN ok to advance diet and move to floor (2) Melena: Code(s): K92.1 - Melena Status: Acute Assessment and Plan: monitor for more signs of bleeding pending biopsies protonix (3) Acute blood loss anemia: Code(s): D62 - Acute posthemorrhagic anemia Status: Acute Assessment and Plan: s/p blood transfusion (4) COVID: Code(s): U07.1 - COVID-19 Status: Acute Subjective Date/time seen: 04/29/24 09:26 Interval history: continues to feel better stable vitals, he is in good spirits no more sign of bleeding Review of Systems Review of Systems: All systems reviewed & are unremarkable except as noted in HPI and below Exam Const: General: no acute distress Other: awake and alert HENMT: Face/Nose/Sinus: Normal nares present Eyes: Sclera: sclerae normal Neck: Neck: supple Resp: Auscultation: no crackles Cardio: Rate: regular rate GI: GI Palp: Yes Soft to palpation and No Tenderness to palpation present (GI) Auscultation: normal bowel sounds Skin: General skin exam: no rashes or lesions noted Neuro: Speech: normal speech Motor exam (neuro): 5/5 motor strength present throughout Extrem: General: normal to inspection Psych: Mental Status: mental status grossly normal Objective Data Vital Signs Vital Signs: Vital Signs - 24 hr 04/28/24 10:35 04/28/24 10:01 04/28/24 10:50 Temperature 99.8 F H 99.7 F H 99.8 F H Pulse Rate 78 81 70 Respiratory Rate 23 H 23 H 26 H Blood Pressure 142/67 H 128/53 L 142/64 H Pulse Oximetry 94 91 94 Oxygen Delivery Oxygen Flow Rate 04/28/24 10:00 04/28/24 11:50 04/28/24 12:04 Temperature 99.9 F H 99.9 F H Pulse Rate 78 67 70 Respiratory Rate 20 25 H Blood Pressure 126/68 145/70 H Pulse Oximetry 95 96 Oxygen Delivery Oxygen Flow Rate 04/28/24 12:00 04/28/24 12:00 04/28/24 12:00 Temperature 99.9 F H Pulse Rate 68 66 Respiratory Rate 27 H Blood Pressure 145/70 H Pulse Oximetry 99 96 Oxygen Delivery Nasal Cannula Oxygen Flow Rate 1 04/28/24 14:00 04/28/24 14:00 04/28/24 16:00 Temperature 100.0 F H Pulse Rate 72 71 Respiratory Rate 22 H Blood Pressure 144/66 H Pulse Oximetry 93 93 Oxygen Delivery Nasal Cannula Oxygen Flow Rate 1 04/28/24 16:01 04/28/24 16:00 04/28/24 18:00 Temperature 100.0 F H Pulse Rate 70 62 67 Respiratory Rate 25 H Blood Pressure 145/65 H Pulse Oximetry 93 Oxygen Delivery Oxygen Flow Rate 04/28/24 18:01 04/28/24 20:00 04/28/24 20:00 Temperature 100.1 F H Pulse Rate 74 68 Respiratory Rate 22 H Blood Pressure 143/69 H Pulse Oximetry 91 93 Oxygen Delivery Nasal Cannula Oxygen Flow Rate 1 04/28/24 20:00 04/28/24 22:00 04/28/24 22:00 Temperature 100.1 F H 100.1 F H Pulse Rate 72 73 68 Respiratory Rate 22 H 20 Blood Pressure 143/69 H 146/70 H Pulse Oximetry 93 95 Oxygen Delivery Oxygen Flow Rate 04/28/24 23:19 04/29/24 00:00 04/29/24 02:00 Temperature Pulse Rate 61 72 Respiratory Rate Blood Pressure Pulse Oximetry 95 Oxygen Delivery Nasal Cannula Oxygen Flow Rate 2 04/29/24 00:00 04/29/24 02:00 04/29/24 03:41 Temperature 99.8 F H 99.4 F Pulse Rate 59 L 67 Respiratory Rate 18 17 Blood Pressure 122/69 154/75 H Pulse Oximetry 92 93 95 Oxygen Delivery Nasal Cannula Oxygen Flow Rate 2 04/29/24 04:00 04/29/24 04:00 04/29/24 06:00 Temperature 99.3 F Pulse Rate 59 L 59 L 56 L Respiratory Rate 16 Blood Pressure 1
--- NOTE | 2024-04-29 10:02 | PC.NURSE ---
This patient, Pierre Dorantes, was transferred to [[id number] ] on 04/29/24 at 1002. Personal belongings sent with patient. Report given to [DEREK Fontenot @ [phone] ]. Appropriate documentation sent with patient.
--- NOTE | 2024-04-29 12:32 | PM.IMPN ---
Progress Note: A&P Assessment and Plan (1) Acute respiratory failure: Code(s): J96.00 - Acute respiratory failure, unspecified whether with hypoxia or hypercapnia Status: Acute (2) Acute GI bleeding: Code(s): K92.2 - Gastrointestinal hemorrhage, unspecified Status: Acute (3) Acute blood loss anemia: Code(s): D62 - Acute posthemorrhagic anemia Status: Acute (4) HTN (hypertension): Code(s): I10 - Essential (primary) hypertension Status: Acute (5) HLD (hyperlipidemia): Code(s): E78.5 - Hyperlipidemia, unspecified Status: Acute (6) COVID: Code(s): U07.1 - COVID-19 Status: Acute Plan 63yo male with HLD and HTN who recently tested positive for COVID (04/16) here for melana with dark red stool and associated epigastric pain. Been taking ibuprofen once a day due to myalgia from COVID infection. CT abdomen pelvis on admission showed wall thickening and mild adjacent inflammatory change of the duodenum/gastric antrum suspicious for peptic ulcer disease. No evidence for perforation. GI was consulted and On 04/25/2024 patient EGD which showed moderate amount of clotted blood in the stomach likely coming from duodenum. A large also was visible with non bleeding vessel. It was difficult to find a real source of bleeding given large amount of matter in. Epinephrine was administered at the site of the ulcer. Patient was transferred to ICU for monitoring Repeat EGD was performed on 04/26/2024 which showed large size greater also ranging from 20 mm to 25 mm in the duodenal bulb with a visible non bleeding vessel. Epinephrine was administered the lesion was also cauterized with gold probe. Patient was intubated during endoscopy and remained intubated postop and was transferred to ICU for further treatment. patient extubated on 04/27/2024 and switched to oxygen supp via NC. cxr 04/28/24 with mild pulmonary edema and started on diuresis intermittently. On Protonix drip will switch to Protonix IV Acute blood loss anemia from GI bleed requiring multiple units of packed red blood cell during the hospital stay. h and h downtrending. transfuse prn transfused 04/28/2024. Continue to monitor H&H and trend Hypertension antihypertensives on hold. Hyperlipidemia on atorvastatin COVID infection: Tested positive on 04/16/2024. Supportive treatment DVT prophylaxis SCD Nutrition: NPO Code status full code Subjective Date/time seen: 04/29/24 12:32 Interval history: Transferred out of the ICU today. Feeling better. Still has some cough and congestion. Denies any abdominal pain. Review of Systems Review of Systems: All systems reviewed & are unremarkable except as noted in HPI and below Exam Narrative: General: Pleasant gentleman in no acute distress HEENT:? Pupils equal and reactive, sclerae is clear, Neck:? Supple Respiratory:? Coarse breath sounds at bases, no wheezing, adequate air entry Cardiac:? S1-S2, regular rate and rhythm Abdomen:? Soft, mild tenderness in the epigastric region, nondistended, normoactive bowel sounds Extremities:? No edema, palpable pedal pulses Neuro:? Patient is awake, alert, oriented, nonfocal, answers to questions appropriately and follows simple commands in all extremities Skin:? Warm and dry Psych:? Normal mentation and affect Objective Data Vital Signs Vital Signs: Vital Signs - 24 hr 04/28/24 14:00 04/28/24 14:00 04/28/24 16:00 Temperature 100.0 F H Pulse Rate 72 71 Respiratory Rate 22 H Blood Pressure 144/66 H Pulse Oximetry 93 93 Oxygen Delivery Nasal Cannula Oxygen Flow Rate 1 04/28/24 16:01 04/28/24 16:00 04/28/24 18:00 Temperature 100.0 F H Pulse Rate 70 62 67 Respiratory Rate 25 H Blood Pressure 145/65 H Pulse Oximetry 93 Oxygen Delivery Oxygen Flow Rate 04/28/24 18:01 04/28/24 20:00 04/28/24 20:00 Temperature 100.1 F H Pulse Rate 74 68 Respiratory Rate 22 H Blood Pr
--- NOTE | 2024-04-29 16:31 | PC.NURSE ---
This patient, Pierre Dorantes, was received from ICU 1 on 04/29/24 at 1016. Patient/family oriented to unit policies and routines
[2024-04-29] MEDS: PANTOPRAZOLE SODIUM IV 40 MG VIAL IV PUSH (20:19)
[2024-04-29] MEDS: guaiFENesin/CODEINE (*CRX) 200/20 MG 10 ML SYRUP PO (22:20)
[2024-04-30] VITALS (13 sets, daily range): BP systolic 140–157; BP diastolic 69–85; PULSE 61–94; RESP 18–20; TEMP 35.6–36.8; O2SAT 92–98
[2024-04-30] MEDS: guaiFENesin/CODEINE (*CRX) 200/20 MG 10 ML SYRUP PO (02:21)
[2024-04-30 04:39] LABS: Basophils Absolute Auto 0.1 K/mm3 (0.0-0.1); Basophils Percent Auto 0.5 % (0.2-1.2); Eosinophils Absolute Auto 0.2 K/mm3 (0-0.3); Eosinophils Percent Auto 1.2 % (0-4.4); Hematocrit 26.1 % (42.0-52.0); Hemoglobin 8.7 g/dL (14.0-18.0); Immature Granulocyte Absolute 1.16 K/mm3 (0.00-0.031); Immature Granulocyte Percent A 7.1 % (0-0.5); Lymphocytes Absolute Auto 0.99 K/mm3 (0.9-3.2); Mean Corpuscular HGB Conc 33.3 g/dl (32-36); Mean Corpuscular Hemoglobin 29.7 pg (26-34); Mean Corpuscular Volume 89.1 fl (80-100); Mean Platelet Volume 9.6 fl (7.4-10.4); Monocytes Absolute Auto 1.6 K/mm3 (0.1-0.6); Monocytes Percent Auto 9.6 % (2.6-8.5); Neutrophils Absolute Auto 12.4 K/mm3 (1.3-6.7); Neutrophils Percent Auto 75.6 % (45.5-73.1); Nucleated Red Blood Cells Perc 0.1 % (0.0-0.2); Platelet Count Result 216 k/mm3 (150-375); Red Blood Count 2.93 M/mm3 (4.6-6.20); Red Cell Distribution Width 14.4 % (11.5-14.5); White Blood Count 16.4 K/mm3 (4.5-10.0)
[2024-04-30 04:55] LABS: Alanine Aminotransferase 55 U/L (6-50); Albumin Level 2.7 g/dL (3.5-5.1); Alkaline Phosphatase 60 U/L (38-126); Anion Gap 7 mmol/L (4-12); Aspartate Amino Transferase 48 U/L (17-59); Bilirubin,Total 0.6 mg/dL (0.2-1.3); Blood Urea Nitrogen 11 mg/dL (9-20); Calcium 7.8 mg/dL (8.4-10.2); Carbon Dioxide 25 mmol/L (22-30); Chloride 100 mmol/L (98-107); Estimated CRCL calculation 69 ml/min; Estimated Glomerular Filt Rate > 60; Glucose 147 mg/dL (65-110); Magnesium 2.1 mg/dL (1.6-2.3); Potassium 3.5 mmol/L (3.4-5.0); Sodium 132 mmol/L (137-145)
[2024-04-30 05:03] LABS: Platelet Estimate Adequate (Adequate); Polychromasia 1+
[2024-04-30 05:04] LABS: Anisocytosis 1+; Schistocytes None Seen
[2024-04-30] MEDS: PANTOPRAZOLE SODIUM IV 40 MG VIAL IV PUSH ×2 (09:10→20:24)
[2024-04-30] MEDS: BENZONATATE 100 MG CAPSULE 200 MG PO ×3 (09:10→16:46)
--- NOTE | 2024-04-30 13:30 | PM.IMPN ---
Progress Note: A&P Assessment and Plan (1) Acute respiratory failure: Code(s): J96.00 - Acute respiratory failure, unspecified whether with hypoxia or hypercapnia Status: Acute (2) Acute GI bleeding: Code(s): K92.2 - Gastrointestinal hemorrhage, unspecified Status: Acute (3) Acute blood loss anemia: Code(s): D62 - Acute posthemorrhagic anemia Status: Acute (4) HTN (hypertension): Code(s): I10 - Essential (primary) hypertension Status: Acute (5) HLD (hyperlipidemia): Code(s): E78.5 - Hyperlipidemia, unspecified Status: Acute (6) COVID: Code(s): U07.1 - COVID-19 Status: Acute Plan 63yo male with HLD and HTN who recently tested positive for COVID (04/16) here for melana with dark red stool and associated epigastric pain. Been taking ibuprofen once a day due to myalgia from COVID infection. CT abdomen pelvis on admission showed wall thickening and mild adjacent inflammatory change of the duodenum/gastric antrum suspicious for peptic ulcer disease. No evidence for perforation. GI was consulted and On 04/25/2024 patient EGD which showed moderate amount of clotted blood in the stomach likely coming from duodenum. A large also was visible with non bleeding vessel. It was difficult to find a real source of bleeding given large amount of matter in. Epinephrine was administered at the site of the ulcer. Patient was transferred to ICU for monitoring Repeat EGD was performed on 04/26/2024 which showed large size greater also ranging from 20 mm to 25 mm in the duodenal bulb with a visible non bleeding vessel. Epinephrine was administered the lesion was also cauterized with gold probe. Patient was intubated during endoscopy and remained intubated postop and was transferred to ICU for further treatment. patient extubated on 04/27/2024 and switched to oxygen supp via NC. cxr 04/28/24 with mild pulmonary edema and started on diuresis intermittently. Patient now oxygen On Protonix drip will switch to Protonix IV. Acute blood loss anemia from GI bleed requiring multiple units of packed red blood cell during the hospital stay. h and h downtrending. transfuse prn transfused 04/28/2024. Continue to monitor H&H and trend and remained stable Hypertension antihypertensives on hold. Restart lisinopril Hyperlipidemia on atorvastatin COVID infection: Tested positive on 04/16/2024. Supportive treatment DVT prophylaxis SCD Nutrition: NPO Code status full code Subjective Date/time seen: 04/30/24 13:30 Interval history: No overnight events. Breathing is better. Off oxygen now. Denies any abdominal pain. Labs reviewed. Review of Systems Review of Systems: All systems reviewed & are unremarkable except as noted in HPI and below Exam Narrative: General: Pleasant gentleman in no acute distress HEENT:? Pupils equal and reactive, sclerae is clear, Neck:? Supple Respiratory:? Coarse breath sounds at bases, no wheezing, adequate air entry Cardiac:? S1-S2, regular rate and rhythm Abdomen:? Soft, nontender, nondistended, normoactive bowel sounds Extremities:? No edema, palpable pedal pulses Neuro:? Patient is awake, alert, oriented, nonfocal, answers to questions appropriately and follows simple commands in all extremities Skin:? Warm and dry Psych:? Normal mentation and affect Objective Data Vital Signs Vital Signs: Vital Signs - 24 hr 04/29/24 14:00 04/29/24 16:12 04/29/24 16:00 Temperature 98.6 F Pulse Rate 78 57 L 74 Respiratory Rate 18 Blood Pressure 141/66 H Pulse Oximetry 98 Oxygen Delivery Oxygen Flow Rate 04/29/24 16:00 04/29/24 18:00 04/29/24 20:00 Temperature 98.0 F Pulse Rate 76 70 Respiratory Rate 22 H Blood Pressure 148/78 H Pulse Oximetry 98 98 Oxygen Delivery Nasal Cannula Oxygen Flow Rate 1 04/29/24 20:00 04/29/24 20:00 04/29/24 22:00 Temperature Pulse Rate 74 76 Respiratory Rate Blood Pressu
--- NOTE | 2024-04-30 16:17 | WPDGIPROGNO ---
Progress Note: A&P Assessment and Plan (1) Acute GI bleeding: Code(s): K92.2 - Gastrointestinal hemorrhage, unspecified Status: Acute Assessment and Plan: resolved (2) Duodenal ulcer: Code(s): K26.9 - Duodenal ulcer, unspecified as acute or chronic, without hemorrhage or perforation Status: Acute Assessment and Plan: large duodenal ulcer- path report reviewed, benign bx continue with protonix bid no more signs of bleeding tolerating diet (3) Melena: Code(s): K92.1 - Melena Status: Acute Assessment and Plan: resolved (4) COVID: Code(s): U07.1 - COVID-19 Status: Acute Subjective Date/time seen: 04/30/24 16:17 Interval history: he is doing much better, eating more and getting stronger Review of Systems Review of Systems: All systems reviewed & are unremarkable except as noted in HPI and below Exam Const: General: no acute distress Other: awake and alert HENMT: Face/Nose/Sinus: Normal nares present Eyes: Sclera: sclerae normal Neck: Neck: supple Resp: Auscultation: no crackles Cardio: Rate: regular rate GI: GI Palp: Yes Soft to palpation and No Tenderness to palpation present (GI) Auscultation: normal bowel sounds Skin: General skin exam: no rashes or lesions noted Neuro: Speech: normal speech Motor exam (neuro): 5/5 motor strength present throughout Extrem: General: normal to inspection Psych: Mental Status: mental status grossly normal Objective Data Vital Signs Vital Signs: Vital Signs - 24 hr 04/29/24 18:00 04/29/24 20:00 04/29/24 20:00 Temperature 98.0 F Pulse Rate 76 70 Respiratory Rate 22 H Blood Pressure 148/78 H Pulse Oximetry 98 98 Oxygen Delivery Nasal Cannula Oxygen Flow Rate 1 04/29/24 20:00 04/29/24 22:00 04/29/24 23:56 Temperature 97.2 F L Pulse Rate 74 76 68 Respiratory Rate 18 Blood Pressure 134/67 Pulse Oximetry 98 Oxygen Delivery Oxygen Flow Rate 04/30/24 00:00 04/30/24 00:00 04/30/24 04:00 Temperature 97.8 F Pulse Rate 62 84 Respiratory Rate 20 Blood Pressure 146/72 H Pulse Oximetry 98 95 Oxygen Delivery Nasal Cannula Oxygen Flow Rate 1 04/30/24 04:00 04/30/24 07:40 04/30/24 02:00 Temperature 97.7 F Pulse Rate 69 75 Respiratory Rate 18 Blood Pressure 147/69 H Pulse Oximetry 95 96 Oxygen Delivery Nasal Cannula Oxygen Flow Rate 1 04/30/24 04:00 04/30/24 06:00 04/30/24 11:05 Temperature Pulse Rate 80 61 Respiratory Rate Blood Pressure Pulse Oximetry Oxygen Delivery Room Air Oxygen Flow Rate 04/30/24 11:37 04/30/24 08:00 04/30/24 10:00 Temperature 97.1 F L Pulse Rate 84 93 70 Respiratory Rate 18 Blood Pressure 157/75 H Pulse Oximetry 92 Oxygen Delivery Oxygen Flow Rate 04/30/24 11:52 04/30/24 13:25 04/30/24 14:00 Temperature Pulse Rate 93 78 Respiratory Rate Blood Pressure 150/74 H Pulse Oximetry Oxygen Delivery Oxygen Flow Rate 04/30/24 16:00 Temperature 96.0 F L Pulse Rate 80 Respiratory Rate 18 Blood Pressure 152/85 H Pulse Oximetry 94 Oxygen Delivery Oxygen Flow Rate Intake/Output Intake/Output: Intake & Output 04/27/24 04/28/24 04/29/24 04/30/24 23:59 23:59 23:59 23:59 Intake Total 1856.2 2702.2 1437.5 990 Output Total 1400 4175 3520 1050 Balance 456.2 -1472.8 -2082.5 -60 Meds/Results Medications: Active Medications Generic Name Dose Route Start Last Admin Trade Name Freq PRN Reason Stop Dose Admin Acetaminophen 650 mg 04/24/24 10:31 04/27/24 15:54 Acetaminophen 325 Mg Tablet PO 650 mg Q6H PRN Administration Mild Pain (1-3) or Fever Atorvastatin Calcium 20 mg 05/01/24 09:00 Atorvastatin 20 Mg Tablet PO DAILY ALVARO Benzonatate 200 mg 04/25/24 11:10 04/30/24 12:52 Benzonatate 100 Mg Capsule PO 200 mg TID ALVARO Administration Fluticasone Propionate 1 spray 0
[2024-04-30] MEDS: lisinopriL 20 MG TABLET PO (16:47)
--- NOTE | 2024-04-30 17:54 | PC.NURSE ---
This patient, Pierre Dorantes, was received from on 04/30/24 at 1750. Patient/family oriented to unit policies and routines.
[2024-05-01 06:00] VITALS: BP 140/67; PULSE 84; RESP 18; TEMP 37.1; O2SAT 95
[2024-05-01 06:16] LABS: Basophils Absolute Auto 0.1 K/mm3 (0.0-0.1); Basophils Percent Auto 0.5 % (0.2-1.2); Eosinophils Absolute Auto 0.2 K/mm3 (0-0.3); Eosinophils Percent Auto 1.1 % (0-4.4); Hemoglobin 8.6 g/dL (14.0-18.0); Immature Granulocyte Absolute 0.76 K/mm3 (0.00-0.031); Immature Granulocyte Percent A 5.2 % (0-0.5); Lymphocytes Percent Auto 6.8 % (18.3-44.2); Mean Corpuscular HGB Conc 33.1 g/dl (32-36); Mean Corpuscular Hemoglobin 29.9 pg (26-34); Mean Corpuscular Volume 90.3 fl (80-100); Mean Platelet Volume 9.5 fl (7.4-10.4); Monocytes Absolute Auto 1.7 K/mm3 (0.1-0.6); Monocytes Percent Auto 11.3 % (2.6-8.5); Neutrophils Percent Auto 75.1 % (45.5-73.1); Nucleated Red Blood Cells Perc 0.1 % (0.0-0.2); Platelet Count Result 254 k/mm3 (150-375); Red Blood Count 2.88 M/mm3 (4.6-6.20); Red Cell Distribution Width 14.2 % (11.5-14.5); White Blood Count 14.7 K/mm3 (4.5-10.0)
[2024-05-01 06:27] LABS: Alanine Aminotransferase 58 U/L (6-50); Albumin Level 2.8 g/dL (3.5-5.1); Alkaline Phosphatase 73 U/L (38-126); Anion Gap 4 mmol/L (4-12); Aspartate Amino Transferase 42 U/L (17-59); Bilirubin,Total 0.5 mg/dL (0.2-1.3); Blood Urea Nitrogen 12 mg/dL (9-20); Calcium 8.1 mg/dL (8.4-10.2); Carbon Dioxide 28 mmol/L (22-30); Chloride 102 mmol/L (98-107); Estimated CRCL calculation 63 ml/min; Estimated Glomerular Filt Rate > 60; Glucose 117 mg/dL (65-110); Magnesium 2.1 mg/dL (1.6-2.3); Potassium 3.7 mmol/L (3.4-5.0); Sodium 134 mmol/L (137-145)
[2024-05-01 07:20] LABS: Hypochromasia 2+; Macrocytosis 1+ (NORMAL); Platelet Estimate Adequate (Adequate); Polychromasia 1+
[2024-05-01 07:21] LABS: Schistocytes None Seen
[2024-05-01] MEDS: ATORVASTATIN 20 MG TABLET PO (09:02)
[2024-05-01] MEDS: lisinopriL 20 MG TABLET PO (09:02)
[2024-05-01] MEDS: BENZONATATE 100 MG CAPSULE 200 MG PO ×2 (09:02→12:16)
[2024-05-01] MEDS: PANTOPRAZOLE SODIUM IV 40 MG VIAL IV PUSH (09:03)
[2024-05-01] MEDS: FLUTICASONE PROPIONATE 0.05% NA SPR 16 GM BTL (*BKC) 1 SPRAY NASAL (10:03)
--- NOTE | 2024-05-01 10:26 | PCNFU ---
Nutrition Follow-Up Complete: Inadequate energy intake related to diet order and altered GI function as evidenced by NPO and clear liquid status goal: Diet advanced PO intake 75% of meals Patient is meeting goal. No new goal. Pt current nutrition is Heart Healthy diet with Ensure compact BID. Last recorded weight is 81.2 kg, up from 79.7 kg on admit. Bowel Motility: +BM reported 05/01 Labs Reviewed: Glu 117, Na 134, Alb 2.8, Hgb 8.6,Hgb 26.0 Meds Noted: Protonix, Lipitor. Skin: WNL Additional Notes: Patient has advanced to a heart healthy diet. Oral Intake 100% of meal today for breakfast. Diet supplements providing an additioanl 220 kcals and 9 gms protein. Agree with diet orders. Monitor diet order, intake, wt, labs. Follow up in 7 days.
[2024-05-01 13:52] VITALS: BP 131/62; PULSE 93; RESP 18; TEMP 36.7; O2SAT 95
--- NOTE | 2024-05-01 15:37 | WPDGIPROGNO ---
Progress Note: A&P Assessment and Plan (1) Acute GI bleeding: Code(s): K92.2 - Gastrointestinal hemorrhage, unspecified Status: Acute Assessment and Plan: resolved (2) Duodenal ulcer: Code(s): K26.9 - Duodenal ulcer, unspecified as acute or chronic, without hemorrhage or perforation Status: Acute Assessment and Plan: large duodenal ulcer- path report reviewed, benign bx, no h pylori he can go home with protonix bid no more signs of bleeding tolerating diet egd in 4 months to assess healing (3) Melena: Code(s): K92.1 - Melena Status: Acute Assessment and Plan: resolved (4) COVID: Code(s): U07.1 - COVID-19 Status: Acute Subjective Date/time seen: 05/01/24 15:37 Interval history: he is almost back to his baseline, no more signs of bleeding Review of Systems Review of Systems: All systems reviewed & are unremarkable except as noted in HPI and below Exam Const: General: no acute distress Other: awake and alert HENMT: Face/Nose/Sinus: Normal nares present Eyes: Sclera: sclerae normal Neck: Neck: supple Resp: Auscultation: no crackles Cardio: Rate: regular rate GI: GI Palp: Yes Soft to palpation and No Tenderness to palpation present (GI) Auscultation: normal bowel sounds Skin: General skin exam: no rashes or lesions noted Neuro: Speech: normal speech Motor exam (neuro): 5/5 motor strength present throughout Extrem: General: normal to inspection Psych: Mental Status: mental status grossly normal Objective Data Vital Signs Vital Signs: Vital Signs - 24 hr 04/30/24 16:00 04/30/24 15:50 04/30/24 16:00 Temperature 96.0 F L Pulse Rate 80 83 Respiratory Rate 18 Blood Pressure 152/85 H Pulse Oximetry 94 Oxygen Delivery Room Air 04/30/24 20:00 04/30/24 20:00 05/01/24 06:00 Temperature 98.2 F 98.7 F Pulse Rate 94 84 Respiratory Rate 18 18 Blood Pressure 140/71 140/67 Pulse Oximetry 93 95 Oxygen Delivery Room Air 05/01/24 08:40 05/01/24 13:52 Temperature 98.1 F Pulse Rate 93 Respiratory Rate 18 Blood Pressure 131/62 Pulse Oximetry 95 Oxygen Delivery Room Air Intake/Output Intake/Output: Intake & Output 04/28/24 04/29/24 04/30/24 05/01/24 23:59 23:59 23:59 23:59 Intake Total 2702.2 1437.5 1880 870 Output Total 4175 3520 1070 1999 Balance -1472.8 -2082.5 810 -1130 Meds/Results Medications: Active Medications Generic Name Dose Route Start Last Admin Trade Name Freq PRN Reason Stop Dose Admin Acetaminophen 650 mg 04/24/24 10:31 04/27/24 15:54 Acetaminophen 325 Mg Tablet PO 650 mg Q6H PRN Administration Mild Pain (1-3) or Fever Atorvastatin Calcium 20 mg 05/01/24 09:00 05/01/24 09:02 Atorvastatin 20 Mg Tablet PO 20 mg DAILY ALVARO Administration Benzonatate 200 mg 04/25/24 11:10 05/01/24 12:16 Benzonatate 100 Mg Capsule PO 200 mg TID ALVARO Administration Fluticasone Propionate 1 spray 05/01/24 09:00 05/01/24 10:03 Fluticasone Propionate 0.05% Na Spr 16 Gm Btl (*Bkc) NASAL 1 spray DAILY ALVARO Administration Guaifenesin/Codeine Phosphate 10 ml 04/25/24 11:10 04/30/24 02:21 Guaifenesin/Codeine (*Crx) 200/20 Mg 10 Ml Syrup PO 10 ml Q4H PRN Administration Cough Hydralazine HCl 10 mg 04/29/24 08:09 04/29/24 08:17 Hydralazine Hcl 20 Mg/Ml Vial IV PUSH 10 mg Q4H PRN Administration Blood Pressure - High Lisinopril 20 mg 04/30/24 17:00 05/01/24 09:02 Lisinopril 20 Mg Tablet PO 20 mg BID ALVARO Administration Loratadine 10 mg 05/01/24 09:00 05/01/24 09:07 Loratadine 10 Mg Tablet PO Not Given QAM ALVARO Ondansetron HCl 4 mg 04/24/24 03:33 Ondansetron Inj 4 Mg/2 Ml Vial IV PUSH Q4H PRN Nausea Pantoprazole Sodium 40 mg 04/29/24 21:00 05/01/24 09:03 Pantoprazole Sodium Iv 40 Mg Vial IV PUSH 40 mg Q12HR ALVARO Administration Radiology Results: I
--- NOTE | 2024-05-01 15:47 | PM.DS ---
DS: Admitting Diagnosis Discharge Date 05/01/2024 Admitting Diagnosis Melena DS: Discharge Diagnosis Discharge Diagnosis (1) Acute respiratory failure: Code(s): J96.00 - Acute respiratory failure, unspecified whether with hypoxia or hypercapnia Status: Acute (2) Acute GI bleeding: Code(s): K92.2 - Gastrointestinal hemorrhage, unspecified Status: Acute (3) Acute blood loss anemia: Code(s): D62 - Acute posthemorrhagic anemia Status: Acute (4) HTN (hypertension): Code(s): I10 - Essential (primary) hypertension Status: Acute (5) HLD (hyperlipidemia): Code(s): E78.5 - Hyperlipidemia, unspecified Status: Acute (6) COVID: Code(s): U07.1 - COVID-19 Status: Acute DS: Summary Hospital Course Hospital Course: 63yo male with HLD and HTN who recently tested positive for COVID (04/16) here for melana with dark red stool and associated epigastric pain. Been taking ibuprofen once a day due to myalgia from COVID infection. CT abdomen pelvis on admission showed wall thickening and mild adjacent inflammatory change of the duodenum/gastric antrum suspicious for peptic ulcer disease. No evidence for perforation. GI was consulted and On 04/25/2024 patient EGD which showed moderate amount of clotted blood in the stomach likely coming from duodenum. A large also was visible with non bleeding vessel. It was difficult to find a real source of bleeding given large amount of matter in. Epinephrine was administered at the site of the ulcer. Patient was transferred to ICU for monitoring Repeat EGD was performed on 04/26/2024 which showed large size greater also ranging from 20 mm to 25 mm in the duodenal bulb with a visible non bleeding vessel. Epinephrine was administered the lesion was also cauterized with gold probe. Patient was intubated during endoscopy and remained intubated postop and was transferred to ICU for further treatment. patient extubated on 04/27/2024 and switched to oxygen supp via NC. cxr 04/28/24 with mild pulmonary edema and started on diuresis intermittently. Patient now off oxygen. On Protonix drip will switch to Protonix IV. And will be on Protonix b.i.d.. He will need EGD in 1 month to assess healing Acute blood loss anemia from GI bleed requiring multiple units of packed red blood cell during the hospital stay. h and h was monitored throughout the hospital stay. He was Transfused prn, last transfused 04/28/2024. Continue to monitor H&H and trend and remained stable Hypertension antihypertensives on hold. Restart lisinopril Hyperlipidemia on atorvastatin COVID infection: Tested positive on 04/16/2024. Supportive treatment DVT prophylaxis SCD Nutrition: NPO Code status full code Time Spent with Patient Time attestation: Total time spent providing and/or coordinating discharge services: 45 minutes Exam Narrative: General: Pleasant gentleman in no acute distress HEENT:? Pupils equal and reactive, sclerae is clear, Neck:? Supple Respiratory:? Coarse breath sounds at bases, no wheezing, adequate air entry Cardiac:? S1-S2, regular rate and rhythm Abdomen:? Soft, nontender, nondistended, normoactive bowel sounds Extremities:? No edema, palpable pedal pulses Neuro:? Patient is awake, alert, oriented, nonfocal, answers to questions appropriately and follows simple commands in all extremities Skin:? Warm and dry Psych:? Normal mentation and affect DS: Data Data Completed and Pending Completed studies during hospitalization: Pending at discharge 04/26/24 12:04 Surgical [PTH] Routine Labs on day of discharge: Labs from last 24 hours 05/01/24 06:01 WBC 14.7 H RBC 2.88 L Hgb 8.6 L Hct 26.0 L MCV 90.3 MCH 29.9 MCHC 33.1 RDW 14.2 Plt Count 254 MPV 9.5 Immature Gran % (Auto) 5.2 H Neut % (Auto) 75.1 H Lymph % (Auto) 6.8 L Gibson % (Auto) 11.3 H Eos % (Auto) 1.1 Baso % (Auto) 0.5 Lymph # (Auto) 1.00 Gibson # (A
== END 2024-05-01 16:30 | disposition home or self-care (01) | DRG 377 ==
LOC: ANHED 04-24 03:39 → ANHIMU 04-24 04:17 → ANHICU 04-25 10:07 → ANHIMU 04-29 10:05 → ANH3MED 04-30 17:39
PROVIDERS: Internal Medicine; Internal Medicine Gastroenterology; Nurse Practitioner Family; Admitting Provider Student in an Organized Health Care Education/Training Program; Emergency Provider Emergency Medicine; Visit Provider Internal Medicine
PROC: 0DJ08ZZ Inspection of Upper Intestinal Tract, Via Natural or Artificial Opening Endoscopic (ICD-10-PCS; CPT 43235; principal; 2024-04-25 09:00)
DX: K26.4 Chronic or unspecified duodenal ulcer with hemorrhage (principal); J96.00 Acute respiratory failure, unspecified whether with hypoxia or hypercapnia; U07.1 COVID-19; D62 Acute posthemorrhagic anemia; E87.1 Hypo-osmolality and hyponatremia; E78.5 Hyperlipidemia, unspecified; I10 Essential (primary) hypertension; N52.9 Male erectile dysfunction, unspecified; R42 Dizziness and giddiness; Z80.0 Family history of malignant neoplasm of digestive organs; I95.9 Hypotension, unspecified
CPT/HCPCS: 36415; 36430; 36600; 71045; 71046; 74177; 80048; 80053; 81003; 82375; 82550; 82805; 82948; 83050; 83605; 83690; 83735; 84100; 84145; 84478; 84484; 85014; 85018; 85025; 85027; 85049; 85055; 85380; 85384; 85610; 85730; 86850; 86900; 86901; 86923; 87081; 87637; 88305; 93005; 94003; 96361; 96365; 96375; 96376; 97161; 97165; 99285; A9270; G0378; J0171; J0330; J0360; J1100; J1940; J2250; J2270; J2405; J2470; J2704; J2765; J7030; J7040; J7050; J7120; P9016; Q9967

== ENCOUNTER 2024-05-27 09:39 | Emergency (ER) | payer OTHER, SELFPAY ==
[2024-05-27 10:00] VITALS: BP 142/87; PULSE 76; RESP 16; TEMP 36.9; O2SAT 100
--- NOTE | 2024-05-27 10:06 | ED.GENADULT ---
HPI - General Adult General Chief complaint: Skin/Abscess/Foreign Body Stated complaint: RASH Time Seen by Provider: 05/27/24 10:07 Source: patient Mode of arrival: ambulatory Limitations: no limitations History of Present Illness HPI narrative: 63-year-old male patient presents to the [facility] with complaints of a rash to the back and trunk for the past week. Patient states he recently got home from vacation to [place] yesterday. Patient states the rash started on Tuesday or Tuesday and got increasingly worse as the week has gone bad eye. Patient states that the itching is pretty mild. Patient has tried Benadryl but states it really has not helped. Patient states that he did have COVID about a month ago. Denies any recent cold symptoms denies sore throat. Patient states they do have skin sensitivities and typically do use dye free detergents and did stay at an [employer]bnb and thought it might be the tiles but again took antihistamines that did not seem to help. Related Data Home Medications Medication Instructions Recorded Confirmed atorvastatin 20 mg tablet 20 mg PO DAILY 05/17/20 05/27/24 cetirizine 10 mg tablet 10 mg PO DAILY 05/17/20 05/27/24 fluticasone propionate 50 1 spray intranasal DAILY 05/17/20 05/27/24 mcg/actuation nasal spray,suspension lisinopril 20 mg tablet 20 mg PO BID 05/17/20 05/27/24 sildenafil 100 mg tablet 100 mg PO DAILY PRN Sexual Activity 05/17/20 05/27/24 Allergies Allergy/AdvReac Type Severity Reaction Status Date / Time lactose AdvReac Mild Nausea and Verified 05/27/24 09:55 Vomiting Review of Systems Review of Systems: CONSTITUTIONAL: Denies fever, chills, or sweats. EYES: Denies visual changes, redness, or discharge. ENT: Denies rhinorrhea, congestion, sore throat, or otalgia. CARDIOVASCULAR: Denies chest pain, palpitations, or edema. RESPIRATORY: Denies cough or dyspnea. GASTROINTESTINAL: Denies abdominal pain, nausea, vomiting, or diarrhea. GENITOURINARY: Denies dysuria or hematuria. SKIN: Denies rash or itching. MUSCULOSKELETAL: Denies back pain, joint pain, or myalgia. NEUROLOGIC: Denies headache, numbness, or weakness. PSYCHIATRIC: Denies anxiety or depression. [facility] Past Medical History Medical History Duodenal ulcer Erectile dysfunction HLD (hyperlipidemia) HTN (hypertension) Vertigo Family History Family History Father Congestive heart failure Diabetes mellitus Mother Colon cancer Atelectasis of both lungs Social History Social History Smoking status: Never smoker Alcohol intake: current Drinks per week: 4 Substance use: never Do You Feel Safe in your Home?: Yes Lack of Transportation: No Lack of Food: Never True Current Housing: I Have Housing Concerned About Future Housing: No Difficulty Paying Gas/Electric Bills: No Difficulty Paying for Meds: No Currently Unemployed: No Education: Associate Degree Difficulty w/ Childcare or Family Care: No Living arrangements: with family Gender identity (if verbalized by the patient): Male Spiritual care concerns: No Comments At the time of my signature I agree with nursing past medical history, surgical, social, and family history. There is no relevant family history pertinent to the presenting complaint. Exam Narrative: GENERAL: Well-appearing, well-nourished, and in no acute distress. HEAD: Normocephalic, atraumatic. EYES: PERRLA and EOMI. ENT: Nares clear, no rhinorrhea or epistaxis. Mucous membranes moist. NECK: Supple. No lymphadenopathy CHEST: Clear to auscultation. No respiratory distress. HEART: Regular rate and rhythm. No murmur heard. Normal peripheral pulses. ABDOMEN: Soft, nontender, nondistended, normal active bowel sounds. EXTREMITIES: Normal range of motion. No edema. SKIN: Warm,
[2024-05-27 10:29] LABS: EDSTREPNEGPOS1 Negative (Negative)
[2024-05-27 10:38] LABS: EDINFLUASCREEN Negative (Negative); EDINFLUBSCREEN Negative (Negative)
== END 2024-05-27 10:52 | disposition home or self-care (01) ==
PROVIDERS: Emergency Provider Nurse Practitioner Family
DX: L42 Pityriasis rosea (principal); Z20.822 Contact with and (suspected) exposure to COVID-19; E78.5 Hyperlipidemia, unspecified; I10 Essential (primary) hypertension
CPT/HCPCS: 87081; 87426; 87804; 87880; 99213; G0463

== ENCOUNTER 2024-08-22 01:33 | Day surgery (SDC) | payer OTHER, SELFPAY ==
[2024-08-03 08:34] VITALS: BMI 28.9
[2024-08-22 08:56] VITALS: BP 150/68; PULSE 61; RESP 16; TEMP 36.4; O2SAT 100
[2024-08-22] MEDS: LACTATED RINGERS 1,000 ML 150 ML IV CONT (09:03)
--- NOTE | 2024-08-22 09:36 | PM.HPGS ---
History of Present Illness History of Present Illness Consent: Risks, benefits, and alternatives have been discussed and questions answered. Patient agrees to proceed with procedure. Chief complaint: Gastric ulcer, w/o hemorrhage or perforation Narrative: Pierre Dorantes is a 63 year old male with gib due to large DU 05/12, doing ok now, still using ppi Review of Systems Review of Systems: All systems reviewed & are unremarkable except as noted in HPI and below PMFSH Past Medical History Medical History Duodenal ulcer Erectile dysfunction HLD (hyperlipidemia) HTN (hypertension) Vertigo Family History Family History Father Congestive heart failure Diabetes mellitus Mother Colon cancer Atelectasis of both lungs Social History Social History Smoking status: Never smoker Alcohol intake: former Drinks per week: 4 Alcohol use details: none since Apr 2024 Substance use: never Do You Feel Safe in your Home?: Yes Lack of Transportation: No Lack of Food: Never True Current Housing: I Have Housing Concerned About Future Housing: No Difficulty Paying Gas/Electric Bills: No Difficulty Paying for Meds: No Currently Unemployed: No Education: Associate Degree Difficulty w/ Childcare or Family Care: No Living arrangements: with family Gender identity (if verbalized by the patient): Male Spiritual care concerns: No Meds Home Medications and Allergies Home Medications Medication Instructions Recorded Confirmed Type atorvastatin 20 mg tablet 20 mg PO DAILY 05/17/20 08/22/24 History cetirizine 10 mg tablet 10 mg PO DAILY 05/17/20 08/22/24 History fluticasone propionate 50 1 spray intranasal DAILY 05/17/20 08/22/24 History mcg/actuation nasal spray,suspension lisinopril 20 mg tablet 20 mg PO BID 05/17/20 08/22/24 History sildenafil 100 mg tablet 100 mg PO DAILY PRN Sexual Activity 05/17/20 08/22/24 History meclizine 25 mg tablet 25 mg PO TID PRN dizziness #20 tabs 04/04/23 08/22/24 Rx pantoprazole 40 mg tablet,delayed 40 mg PO BID #60 tabs 05/01/24 08/22/24 Rx release triamcinolone acetonide 0.1 % 1 applic topical BID PRN Rash 08/03/24 08/22/24 History topical cream Allergies Allergy/AdvReac Type Severity Reaction Status Date / Time lactose AdvReac Mild Nausea and Verified 08/22/24 08:54 Vomiting Vital Signs Vital Signs - 24 hr 08/22/24 08:56 Temperature 97.6 F Pulse Rate 61 Respiratory Rate 16 Blood Pressure 150/68 H Pulse Oximetry 100 Oxygen Delivery Room Air Exam Const: General: comfortable and no acute distress HENMT: Face/Nose/Sinus: Normal nares present Eyes: General: appearance normal, both eyes and all related structures Neck: Neck: no JVD Resp: Auscultation: clear to auscultation bilaterally Cardio: Rate: regular rate Rhythm: regular rhythm GI: Inspection: non-distended GI Palp: Yes Soft to palpation Skin: General skin exam: normal color Neuro: General: gait normal Speech: normal speech Extrem: General: normal to inspection Psych: Mental Status: mental status grossly normal Assessment and Plan Assessment and plan (1) Duodenal ulcer: Code(s): K26.9 - Duodenal ulcer, unspecified as acute or chronic, without hemorrhage or perforation Status: Acute Assessment and Plan: egd to assess healing
--- NOTE | 2024-08-22 09:39 | P.PNAN_ITS ---
Anes - Initial Pre Proc Eval Procedure: Operation Date: 08/22/24 10:00 Proposed Procedures p Esophagogastroduodenoscopy - Duke Chao MD Date/Time: 08/22/24 09:39 Surgeon: Duke Chao MD Pre Op Diagnosis: Gastric ulcer, w/o hemorrhage or perforation Patient Data Age: 63 Gender: M Height: 1.6 m Weight: 77.5 kg Last Vital Signs Temp 36.4 C 08/22/24 08:56 Pulse 61 08/22/24 08:56 Resp 16 08/22/24 08:56 BP 150/68 H 08/22/24 08:56 Pulse Ox 100 08/22/24 08:56 O2 Del Method Room Air 08/22/24 08:56 Allergies Allergy/AdvReac Type Severity Reaction Status Date / Time lactose AdvReac Mild Nausea and Verified 08/22/24 08:54 Vomiting Home Medications Medication Instructions Recorded Confirmed Type atorvastatin 20 mg tablet 20 mg PO DAILY 05/17/20 08/22/24 History cetirizine 10 mg tablet 10 mg PO DAILY 05/17/20 08/22/24 History fluticasone propionate 50 1 spray intranasal DAILY 05/17/20 08/22/24 History mcg/actuation nasal spray,suspension lisinopril 20 mg tablet 20 mg PO BID 05/17/20 08/22/24 History sildenafil 100 mg tablet 100 mg PO DAILY PRN Sexual Activity 05/17/20 08/22/24 History meclizine 25 mg tablet 25 mg PO TID PRN dizziness #20 tabs 04/04/23 08/22/24 Rx pantoprazole 40 mg tablet,delayed 40 mg PO BID #60 tabs 05/01/24 08/22/24 Rx release triamcinolone acetonide 0.1 % 1 applic topical BID PRN Rash 08/03/24 08/22/24 History topical cream Patient hx anesthesia problems: none Family hx anesthesia problems: none Results Review: All pre-operative results and documents have been reviewed as part of the pre- operative evaluation. [facility] Past Medical History Medical History Duodenal ulcer Erectile dysfunction HLD (hyperlipidemia) HTN (hypertension) Vertigo Family History Family History Father Congestive heart failure Diabetes mellitus Mother Colon cancer Atelectasis of both lungs Social History Social History Smoking status: Never smoker Alcohol intake: former Drinks per week: 4 Alcohol use details: none since Apr 2024 Substance use: never Do You Feel Safe in your Home?: Yes Lack of Transportation: No Lack of Food: Never True Current Housing: I Have Housing Concerned About Future Housing: No Difficulty Paying Gas/Electric Bills: No Difficulty Paying for Meds: No Currently Unemployed: No Education: Associate Degree Difficulty w/ Childcare or Family Care: No Living arrangements: with family Gender identity (if verbalized by the patient): Male Spiritual care concerns: No Anes - Eval Final PreProcedure Day of Procedure 08/22/24 09:39 Patient weight: obese Heart: regular rate and rhythm Lungs: clear to auscultation Airway: Mallampati scale class II Neurological: alert and oriented Last oral intake: >/= 8 hours ASA classification: III Emergent: no Anesthetic plan: proceed Anesthesia type and monitoring: general GIVS and standard monitoring Results Review: All pre-operative results and documents have been reviewed as part of the pre- operative evaluation. Informed Consent: The patient's anesthetic plan and its attendant risks and benefits were discussed with the patient/family/POA. Questions were solicited and answers provided to the satisfaction of the patient/family/POA.
[2024-08-22 09:48] VITALS: BP 98/56; PULSE 58; RESP 21; O2SAT 97
[2024-08-22 09:58] VITALS: BP 94/57; PULSE 53; RESP 18; O2SAT 97
[2024-08-22 10:08] VITALS: BP 102/63; PULSE 51; RESP 16; O2SAT 100
== END 2024-08-22 10:35 | disposition home or self-care (01) ==
PROVIDERS: Visit Provider Internal Medicine Gastroenterology
PROC: 0DJ08ZZ Inspection of Upper Intestinal Tract, Via Natural or Artificial Opening Endoscopic (ICD-10-PCS; CPT 43235; principal; 2024-08-22 10:00)
DX: K26.9 Duodenal ulcer, unspecified as acute or chronic, without hemorrhage or perforation (principal); N52.9 Male erectile dysfunction, unspecified; E78.5 Hyperlipidemia, unspecified; I10 Essential (primary) hypertension; E66.9 Obesity, unspecified; Z68.30 Body mass index [BMI] 30.0-30.9, adult; Z80.0 Family history of malignant neoplasm of digestive organs; Z82.49 Family history of ischemic heart disease and other diseases of the circulatory system
CPT/HCPCS: 43235; J2704; J7120